=== PATIENT | male | born 1995 | race Caucasian/White ===

== ENCOUNTER 2016-06-21 16:00 | Emergency (ER) | payer SELFPAY ==
[2016-06-21 16:55] VITALS: BP 124/67
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
[2016-06-21 17:35] LABS: ABSOLUTE BASOPHILS # (AUTO) 0.1 10^3/uL (0.0-0.2); ABSOLUTE EOSINOPHILS # (AUTO) 0.3 10^3/uL (0.0-0.6); ABSOLUTE LYMPHOCYTES (AUTO) 4.6 10^3/uL (0.5-4.7); ABSOLUTE MONOCYTES (AUTO) 1.3 10^3/uL (0.1-1.4); ABSOLUTE NEUT (AUTO) 6.4 10^3/uL (1.7-8.2); BASOPHILS % (AUTO) 0.7 % (0-2); EOSINOPHILS % (AUTO) 2.4 % (0-6); HEMATOCRIT 44.3 % (37.9-51.0); HEMOGLOBIN 14.7 g/dL (13.5-17.0); HGB HCT DIFFERENCE -0.2; LYMPHOCYTES % (AUTO) 36.5 % (13-45); MEAN CORPUSCULAR HEMOGLOBIN 28.1 pg (27.0-33.4); MEAN CORPUSCULAR HGB CONC 33.2 g/dL (32.0-36.0); MEAN CORPUSCULAR VOLUME 85 fl (80-97); MONOCYTES % (AUTO) 10.1 % (3-13); RED BLOOD COUNT 5.24 10^6/uL (4.35-5.55); RED CELL DISTRIBUTION WIDTH 14.4 % (11.5-14.0); SEGMENTED NEUTROPHILS % (AUTO) 50.3 % (42-78); WHITE BLOOD COUNT 12.7 10^3/uL (4.0-10.5)
[2016-06-21 17:54] LABS: ALANINE AMINOTRANSFERASE 48 U/L (21-72); ALBUMIN 4.2 g/dL (3.5-5.0); ALKALINE PHOSPHATASE 85 U/L (38-126); ANION GAP 10 (5-19); ASPARTATE AMINO TRANSFERASE 32 U/L (17-59); BILIRUBIN,TOTAL 0.6 mg/dL (0.2-1.3); BLOOD UREA NITROGEN 8 mg/dL (7-20); CALCIUM 9.8 mg/dL (8.4-10.2); CARBON DIOXIDE 26 mmol/L (22-30); CHLORIDE 105 mmol/L (98-107); GLUCOSE 84 mg/dL (75-110); LIPASE 59.6 U/L (23-300); POTASSIUM 4.3 mmol/L (3.6-5.0); TOTAL PROTEIN 6.8 g/dL (6.3-8.2)
--- NOTE | 2016-06-21 20:34 | EKG REPORT ---
SEVERITY:- NORMAL ECG - SINUS RHYTHM : Confirmed by: Shayan Carr MD 21-Jun-2016 20:34:08
== END 2016-06-21 17:55 | disposition left against medical advice (07) ==
LOC: ER 16:00
DX: R06.02 Shortness of breath (principal); R07.9 Chest pain, unspecified; R05 Cough
CPT/HCPCS: 36415; 71020; 80053; 83690; 85025; 93005; 93010; 99281

== ENCOUNTER 2016-07-16 01:37 | Emergency (ER) | payer SELFPAY ==
[2016-07-16 01:49] VITALS: BP 136/75
[2016-07-16] MEDS ORDERED: KETOROLAC TROMETHAMINE 60 MG/2 ML SDV IM ONE (02:45)
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
== END 2016-07-16 04:35 | disposition left against medical advice (07) ==
LOC: ER 01:37
DX: M54.2 Cervicalgia (principal); M54.5 Low back pain; R42 Dizziness and giddiness; R51 Headache; F17.200 Nicotine dependence, unspecified, uncomplicated; J45.909 Unspecified asthma, uncomplicated; Z53.20 Procedure and treatment not carried out because of patient's decision for unspecified reasons; Z90.81 Acquired absence of spleen
CPT/HCPCS: 99281; 96372; J1885

== ENCOUNTER 2016-07-25 11:51 | Emergency (ER) | payer SELFPAY ==
[2016-07-25 11:56] VITALS: BP 126/73
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
[2016-07-25] MEDS ORDERED: IBUPROFEN 600 MG TABLET PO ONE (12:28)
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
== END 2016-07-25 12:45 | disposition home or self-care (01) ==
LOC: ER 11:51
DX: S63.630A Sprain of interphalangeal joint of right index finger, initial encounter (principal); F90.9 Attention-deficit hyperactivity disorder, unspecified type; F31.9 Bipolar disorder, unspecified; F17.210 Nicotine dependence, cigarettes, uncomplicated; X58.XXXA Exposure to other specified factors, initial encounter
CPT/HCPCS: 99283

== ENCOUNTER 2016-07-28 06:25 | Emergency (ER) | payer SELFPAY ==
[2016-07-28] MEDS ORDERED: PROCHLORPERAZINE EDISYLATE INJ 10 MG/2 ML VIAL IV ONE (07:18)
[2016-07-28] MEDS ORDERED: DIPHENHYDRAMINE HCL 50 MG/ML VIAL IV ONE (07:18)
[2016-07-28] MEDS ORDERED: NORMAL SALINE 1000 ML 1,000 ML IV ONE ×2 (07:18→09:19)
[2016-07-28] MEDS ORDERED: PREDNISONE 20 MG TABLET PO ONE (07:21)
[2016-07-28] MEDS ORDERED: IPRATROPIUM/ALBUTEROL 0.5-2.5 MG/3 ML AMPUL NEB ONE (07:21)
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
[2016-07-28 08:41] LABS: ABSOLUTE EOSINOPHILS # (AUTO) 0.4 10^3/uL (0.0-0.6); ABSOLUTE MONOCYTES (AUTO) 1.5 10^3/uL (0.1-1.4); ABSOLUTE NEUT (AUTO) 7.6 10^3/uL (1.7-8.2); BASOPHILS % (AUTO) 0.3 % (0-2); EOSINOPHILS % (AUTO) 2.7 % (0-6); HEMATOCRIT 42.6 % (37.9-51.0); HEMOGLOBIN 14.6 g/dL (13.5-17.0); HGB HCT DIFFERENCE 1.2; MEAN CORPUSCULAR HEMOGLOBIN 29.2 pg (27.0-33.4); MEAN CORPUSCULAR HGB CONC 34.3 g/dL (32.0-36.0); MEAN CORPUSCULAR VOLUME 85 fl (80-97); MONOCYTES % (AUTO) 9.3 % (3-13); RED BLOOD COUNT 5.01 10^6/uL (4.35-5.55); RED CELL DISTRIBUTION WIDTH 14.3 % (11.5-14.0); SEGMENTED NEUTROPHILS % (AUTO) 45.7 % (42-78); WHITE BLOOD COUNT 16.6 10^3/uL (4.0-10.5)
[2016-07-28 09:01] LABS: APPEARANCE,URINE SLIGHTLY-CLOUDY; BILIRUBIN,URINE NEGATIVE (NEGATIVE); CALCIUM OXALATE CRYSTALS,URINE RARE /HPF; GLUCOSE, URINE NEGATIVE (NEGATIVE); KETONES,URINE TRACE mg/dL (NEGATIVE); LEUKOCYTE ESTERASE,URINE NEGATIVE (NEGATIVE); NITRITE,URINE NEGATIVE (NEGATIVE); PROTEIN,URINE 30 mg/dL (NEGATIVE); URINE SPECIFIC GRAVITY 1.036; UROBILINOGEN,URINE NEGATIVE mg/dL (<2.0)
[2016-07-28 09:06] LABS: ALANINE AMINOTRANSFERASE 60 U/L (21-72); ALBUMIN 4.1 g/dL (3.5-5.0); ALKALINE PHOSPHATASE 81 U/L (38-126); ANION GAP 11 (5-19); ASPARTATE AMINO TRANSFERASE 36 U/L (17-59); BILIRUBIN,TOTAL 0.3 mg/dL (0.2-1.3); BLOOD UREA NITROGEN 10 mg/dL (7-20); CALCIUM 10.1 mg/dL (8.4-10.2); CARBON DIOXIDE 24 mmol/L (22-30); CHLORIDE 106 mmol/L (98-107); CREATININE RESULT 0.72 mg/dL (0.52-1.25); GLUCOSE 90 mg/dL (75-110); LIPASE 76.5 U/L (23-300); POTASSIUM 4.4 mmol/L (3.6-5.0)
[2016-07-28] MEDS ORDERED: ALBUTEROL SULFATE HFA (90 MCG/PUFF) 8 GM MDI (1 MDI/ER DISP) IH ONE (11:49)
[2016-07-28 12:24] VITALS: BP 133/66
== END 2016-07-28 12:00 | disposition home or self-care (01) ==
LOC: ER 06:25
DX: R51 Headache (principal); J06.9 Acute upper respiratory infection, unspecified; E86.0 Dehydration; R19.7 Diarrhea, unspecified; R11.2 Nausea with vomiting, unspecified; R04.0 Epistaxis; R10.817 Generalized abdominal tenderness; R39.89 Other symptoms and signs involving the genitourinary system; J45.909 Unspecified asthma, uncomplicated; M79.1 Myalgia; F17.200 Nicotine dependence, unspecified, uncomplicated; Z90.81 Acquired absence of spleen
CPT/HCPCS: 94640; 99284; 96361; 96374; 96375; 36415; 83690; 85025; 80053; 81001; 87804; J1200; J7512; J0780; J7030; J3490; J7620

== ENCOUNTER 2016-08-08 19:19 | Emergency (ER) | payer SELFPAY ==
[2016-08-08 19:40] VITALS: BP 132/72
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
[2016-08-08] MEDS ORDERED: ASPIRIN 81 MG TABLET, CHEWABLE PO ONE (19:43)
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
[2016-08-08 22:17] LABS: ANION GAP 13 (5-19); BLOOD UREA NITROGEN 9 mg/dL (7-20); CALCIUM 9.8 mg/dL (8.4-10.2); CARBON DIOXIDE 23 mmol/L (22-30); CHLORIDE 105 mmol/L (98-107); CREATININE RESULT 0.61 mg/dL (0.52-1.25); GLUCOSE 98 mg/dL (75-110)
--- NOTE | 2016-08-09 20:18 | EKG REPORT ---
SEVERITY:- NORMAL ECG - SINUS RHYTHM : Confirmed by: Jose Saeed 09-Aug-2016 20:17:34
== END 2016-08-08 22:08 | disposition left against medical advice (07) ==
LOC: ER 19:19
DX: R20.2 Paresthesia of skin (principal); R07.9 Chest pain, unspecified; F17.200 Nicotine dependence, unspecified, uncomplicated
CPT/HCPCS: 36415; 71020; 80048; 93005; 93010; 99281

== ENCOUNTER 2016-08-30 17:42 | Emergency (ER) | payer SELFPAY ==
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
[2016-08-30 18:36] LABS: ABSOLUTE BASOPHILS # (AUTO) 0.1 10^3/uL (0.0-0.2); ABSOLUTE EOSINOPHILS # (AUTO) 0.4 10^3/uL (0.0-0.6); ABSOLUTE LYMPHOCYTES (AUTO) 4.8 10^3/uL (0.5-4.7); ABSOLUTE MONOCYTES (AUTO) 0.8 10^3/uL (0.1-1.4); ABSOLUTE NEUT (AUTO) 7.4 10^3/uL (1.7-8.2); BASOPHILS % (AUTO) 0.7 % (0-2); EOSINOPHILS % (AUTO) 3.1 % (0-6); HEMATOCRIT 47.2 % (37.9-51.0); HEMOGLOBIN 16.1 g/dL (13.5-17.0); HGB HCT DIFFERENCE 1.1; LYMPHOCYTES % (AUTO) 35.3 % (13-45); MEAN CORPUSCULAR HEMOGLOBIN 28.9 pg (27.0-33.4); MEAN CORPUSCULAR HGB CONC 34.1 g/dL (32.0-36.0); MEAN CORPUSCULAR VOLUME 85 fl (80-97); MONOCYTES % (AUTO) 6.1 % (3-13); RED BLOOD COUNT 5.56 10^6/uL (4.35-5.55); SEGMENTED NEUTROPHILS % (AUTO) 54.8 % (42-78); WHITE BLOOD COUNT 13.5 10^3/uL (4.0-10.5)
[2016-08-30 18:55] LABS: ALANINE AMINOTRANSFERASE 49 U/L (21-72); ALBUMIN 4.4 g/dL (3.5-5.0); ALCOHOL < 10 mg/dL (NONE DETECTED); ALKALINE PHOSPHATASE 91 U/L (38-126); ANION GAP 13 (5-19); ASPARTATE AMINO TRANSFERASE 30 U/L (17-59); BILIRUBIN,DIRECT 0.1 mg/dL (0.0-0.4); BILIRUBIN,TOTAL 0.3 mg/dL (0.2-1.3); BLOOD UREA NITROGEN 11 mg/dL (7-20); CALCIUM 10.3 mg/dL (8.4-10.2); CARBON DIOXIDE 24 mmol/L (22-30); CHLORIDE 107 mmol/L (98-107); CREATININE RESULT 0.63 mg/dL (0.52-1.25); GLUCOSE 110 mg/dL (75-110); POTASSIUM 4.6 mmol/L (3.6-5.0); SODIUM 144.4 mmol/L (137-145); TOTAL PROTEIN 7.4 g/dL (6.3-8.2)
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
[2016-08-30 19:24] LABS: APPEARANCE,URINE SLIGHTLY-CLOUDY; BILIRUBIN,URINE NEGATIVE (NEGATIVE); GLUCOSE, URINE NEGATIVE (NEGATIVE); KETONES,URINE NEGATIVE (NEGATIVE); LEUKOCYTE ESTERASE,URINE NEGATIVE (NEGATIVE); NITRITE,URINE NEGATIVE (NEGATIVE); PROTEIN,URINE 30 mg/dL (NEGATIVE); URINE SPECIFIC GRAVITY 1.031; UROBILINOGEN,URINE NEGATIVE mg/dL (<2.0)
[2016-08-30 19:38] LABS: URINE BARBITURATES SCREEN NEGATIVE; URINE METHADONE SCREEN NEGATIVE; URINE OPIATES LOW NEGATIVE; URINE PHENCYCLIDINE SCREEN NEGATIVE
--- NOTE | 2016-08-30 21:12 | EKG REPORT ---
SEVERITY:- NORMAL ECG - SINUS RHYTHM : Confirmed by: Ayaka Pierre MD 30-Aug-2016 21:11:55
[2016-08-31] MEDS ORDERED: ALBUTEROL SULFATE HFA (90 MCG/PUFF) 200 PUFF/8.5 GM MDI IH ONE (04:51)
--- NOTE | 2016-08-31 09:55 | ER Document Report ---
Doctor's Note Notes: 08/31/16 09:52 Medical rounds: Chart reviewed and patient interviewed briefly. Patient denies somatic complaints. Vital signs are normal. Laboratory values are remarkable for presence of benzodiazepine residues on drug screen. He is alert, oriented, and coherent. He is medically stable, pending psych evaluation.
--- NOTE | 2016-08-31 10:54 | PSYCHOLOGICAL NOTE ---
Psych Note - Psych Note Psych Note: Patient is a 20-year-old male who presented overnight with complaints of increased depression and thoughts of suicide. Patient was held voluntarily as he was not felt to meet criteria per the [place] general statute 122C as he denied intent, plan, and means behind his suicidal ideations. Patient this morning states he has been depressed on and off for a while, and has a history of opt services via [facility]. Patient can not or will not identify age/time frame, but does state it was not helpful. Patient states his depressive episodes waxes and wanes, and yesterday he was arguing with his grandparents. Patient adamant that he would not disclose the nature of this argument, and states it is a private family matter. Patient states he is being forced to live in [place] and has no one out there as a support. Patient states he has to beg and borrow rides to get to work at [employer] at the [employer]. Patient states some days he care and some days he does not. Patient states some times he wants to by suicide and sometimes he just wants to feel better. Discussed with patient various options, to include following up at [facility]. Patient appeared irritated and stated he wasted all his time by coming here and spending the night. Patient was prompted to clarify the type of help he was seeking, which he states he did not know. Advised patient that [facility] was within walking distance to his job, which may be the most feasible. Patient states he is financially struggling which adds to his stress and has no other place to live. Patient denied SA; however, when prompted to identify the source of his positive benzo toxicology, he states he was given one by a friend when upset a could days ago. Patient's next of kin, Cary Winters states they had a major disagreement yesterday and he was "out of line" and had to call the law. She states when he gets angry he loses control and he was communicating threats and refusing to leave. She states he threatened to come back and reek havoc on them. She denies specific threats. Grandmother states historically he has lived with them, but moved out of their home at age 15, dropped out of school and stopped medications. She states she has told him that if moved back in with his other grandmother she would ensure he has a ride to and from work, as well as help him apply for Medicaid. She states he was staying with a friend and she prompted him to move in with the other grandmother so she could drive him back and forth to his appointments and work. Patient is alert and oriented. Mood is irritable with flat affect. Patient endorses suicidal ideations but denies plan, intent, or means. Patient denies homicidal ideations, intent, plan, means. Patient denies A/VH; delusions not noted. Thought processes were guarded. Conversational speech was blunted. Intellectual abilities were estimated within low average range. Attention and focus were fair. Insight, judgment, impulse control were poor. Unspecified bipolar and related disorder, per history R/O substance abuse Patient is psychiatrically cleared and recommended for discharge to follow up as a walk-in at [facility] for comprehensive clinical assessment and possible outpatient services. Patient does not meet criteria for IVC per [place] 122C as he denies SI with intent, and is not experiencing and/or following through with command hallucinations. Collateral information denies they are concerned for his safety and states they are agreeable to plan of care for him to follow-up and will also support patient in doing so. I consulted with Dr. Aguilar in regards to the care and management of this patient. BRYANNA Allison. is in agreement with disposition and recommendations.
[2016-08-31] MEDS ORDERED: ALBUTEROL SULFATE HFA (90 MCG/PUFF) 200 PUFF/8.5 GM MDI IH PRN (10:59)
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
[2016-08-31 11:56] VITALS: BP 135/76
== END 2016-08-31 12:05 | disposition home or self-care (01) ==
LOC: ER 17:42
DX: R45.851 Suicidal ideations (principal); F19.10 Other psychoactive substance abuse, uncomplicated; R45.1 Restlessness and agitation
CPT/HCPCS: 93005; 99285; 36415; 80307 ×4; 85025; 80053; 81001; 93010; J3490

== ENCOUNTER 2016-09-30 07:30 | Emergency (ER) | payer SELFPAY ==
[2016-09-30] MEDS ORDERED: GUAIFENESIN 600 MG TABLET.SA PO ONE (08:41)
[2016-09-30] MEDS ORDERED: IBUPROFEN 800 MG TABLET PO ONE (08:41)
[2016-09-30] MEDS ORDERED: PSEUDOEPHEDRINE HCL 30 MG TABLET PO ONE (08:41)
[2016-09-30] MEDS ORDERED: ALBUTEROL SULFATE 0.083% NEB 2.5 MG/3 ML AMPUL NEB ONE (08:41)
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
[2016-09-30 09:09] VITALS: BP 136/72
[2016-09-30] MEDS ORDERED: DEXTROSE 50%-WATER 25 GM/50 ML DISP.SYRIN IV PRN ×2 (18:04)
[2016-09-30] MEDS ORDERED: ONDANSETRON HCL INJ/PF 4 MG/2 ML SDV IV PRN (18:04)
[2016-09-30] MEDS ORDERED: GLUCAGON,HUMAN RECOMB 1 MG INJ IM PRN (18:04)
[2016-09-30] MEDS ORDERED: ALBUTEROL SULFATE 0.083% NEB 2.5 MG/3 ML AMPUL NEB PRN (18:04)
[2016-09-30] MEDS ORDERED: DEXTROSE 40% GEL 15 GM TUBE PO PRN ×2 (18:04)
[2016-09-30] MEDS ORDERED: NORMAL SALINE 1000 ML 1,000 ML IV PRN (18:04)
[2016-09-30] MEDS ORDERED: ACETAMINOPHEN 325 MG TABLET PO PRN (18:04)
[2016-09-30] MEDS ORDERED: FAMOTIDINE 20 MG TABLET PO SCH (22:00)
[2016-10-01] MEDS ORDERED: ENOXAPARIN SODIUM INJ 40 MG/0.4 ML DISP.SYRIN SUBCUT SCH (08:00)
[2016-10-01] MEDS ORDERED: DOCUSATE SODIUM 100 MG CAPSULE PO SCH (10:00)
== END 2016-09-30 09:25 | disposition home or self-care (01) ==
LOC: ER 07:30
DX: J06.9 Acute upper respiratory infection, unspecified (principal); H92.03 Otalgia, bilateral; R05 Cough; J45.909 Unspecified asthma, uncomplicated; F17.200 Nicotine dependence, unspecified, uncomplicated; Z90.81 Acquired absence of spleen
CPT/HCPCS: 94640; 99282

== ENCOUNTER 2016-11-07 08:08 | Emergency (ER) | payer SELFPAY ==
[2016-11-07] MEDS ORDERED: IPRATROPIUM/ALBUTEROL 0.5-2.5 MG/3 ML AMPUL NEB ONE ×2 (08:26→10:13)
[2016-11-07] MEDS ORDERED: PREDNISONE 20 MG TABLET PO ONE (08:32)
[2016-11-07] MEDS ORDERED: ALBUTEROL SULFATE 0.083% NEB 2.5 MG/3 ML AMPUL NEB ONE (08:32)
[2016-11-07] MEDS ORDERED: ALBUTEROL SULFATE HFA (90 MCG/PUFF) 8 GM MDI (1 MDI/ER DISP) IH ONE ×2 (10:36→11:57)
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
[2016-11-07 12:17] VITALS: BP 111/89
== END 2016-11-07 12:15 | disposition home or self-care (01) ==
LOC: ER 08:08
DX: J45.901 Unspecified asthma with (acute) exacerbation (principal); R06.02 Shortness of breath; Z87.891 Personal history of nicotine dependence
CPT/HCPCS: 94640 ×2; 99284; J7512; J3490; J7620

== ENCOUNTER 2016-11-18 21:57 | Emergency (ER) | payer SELFPAY ==
[2016-11-18 23:12] LABS: APPEARANCE,URINE SLIGHTLY-CLOUDY; BILIRUBIN,URINE SMALL (NEGATIVE); GLUCOSE, URINE NEGATIVE (NEGATIVE); KETONES,URINE TRACE mg/dL (NEGATIVE); LEUKOCYTE ESTERASE,URINE NEGATIVE (NEGATIVE); NITRITE,URINE NEGATIVE (NEGATIVE); PROTEIN,URINE 100 mg/dL (NEGATIVE); URINE SPECIFIC GRAVITY 1.044; UROBILINOGEN,URINE NEGATIVE mg/dL (<2.0)
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
[2016-11-18] MEDS ORDERED: NORMAL SALINE 1000 ML 1,000 ML IV ONE (23:45)
[2016-11-19 00:44] LABS: ALANINE AMINOTRANSFERASE 46 U/L (21-72); ALBUMIN 4.3 g/dL (3.5-5.0); ALKALINE PHOSPHATASE 84 U/L (38-126); ANION GAP 14 (5-19); ASPARTATE AMINO TRANSFERASE 28 U/L (17-59); BILIRUBIN,DIRECT 0.3 mg/dL (0.0-0.4); BILIRUBIN,TOTAL 0.5 mg/dL (0.2-1.3); BLOOD UREA NITROGEN 16 mg/dL (7-20); CALCIUM 10.2 mg/dL (8.4-10.2); CARBON DIOXIDE 24 mmol/L (22-30); CHLORIDE 105 mmol/L (98-107); CREATININE RESULT 0.73 mg/dL (0.52-1.25); GLUCOSE 102 mg/dL (75-110); POTASSIUM 4.3 mmol/L (3.6-5.0); SODIUM 142.7 mmol/L (137-145); TOTAL PROTEIN 7.8 g/dL (6.3-8.2)
[2016-11-19 02:15] VITALS: BP 133/68
== END 2016-11-19 02:15 | disposition home or self-care (01) ==
LOC: ER 21:57
DX: R30.0 Dysuria (principal); E86.0 Dehydration; J45.909 Unspecified asthma, uncomplicated; Z90.81 Acquired absence of spleen
CPT/HCPCS: 99283; 96360; 36415; 80053; 81001; J7030

== ENCOUNTER 2016-11-26 23:09 | Emergency (ER) | payer SELFPAY ==
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
[2016-11-27] MEDS ORDERED: BESIFLOXACIN HCL 0.6% OPH SUSP 5 ML BOTTLE OD ONE (01:18)
[2016-11-27 02:34] VITALS: BP 117/57
== END 2016-11-27 01:45 | disposition home or self-care (01) ==
LOC: ER 23:09
DX: H57.11 Ocular pain, right eye (principal); F17.200 Nicotine dependence, unspecified, uncomplicated; Z71.6 Tobacco abuse counseling; J45.909 Unspecified asthma, uncomplicated
CPT/HCPCS: 99283

== ENCOUNTER 2016-12-04 21:43 | Emergency (ER) | payer SELFPAY ==
[2016-12-04 23:03] LABS: ABSOLUTE BASOPHILS # (AUTO) 0.1 10^3/uL (0.0-0.2); ABSOLUTE EOSINOPHILS # (AUTO) 0.3 10^3/uL (0.0-0.6); ABSOLUTE LYMPHOCYTES (AUTO) 5.8 10^3/uL (0.5-4.7); ABSOLUTE MONOCYTES (AUTO) 1.2 10^3/uL (0.1-1.4); ABSOLUTE NEUT (AUTO) 8.9 10^3/uL (1.7-8.2); BASOPHILS % (AUTO) 0.5 % (0-2); EOSINOPHILS % (AUTO) 1.7 % (0-6); HEMATOCRIT 45.5 % (37.9-51.0); HEMOGLOBIN 14.9 g/dL (13.5-17.0); HGB HCT DIFFERENCE -0.8; LYMPHOCYTES % (AUTO) 35.9 % (13-45); MEAN CORPUSCULAR HGB CONC 32.6 g/dL (32.0-36.0); MEAN CORPUSCULAR VOLUME 86 fl (80-97); MONOCYTES % (AUTO) 7.2 % (3-13); RED CELL DISTRIBUTION WIDTH 14.5 % (11.5-14.0); SEGMENTED NEUTROPHILS % (AUTO) 54.7 % (42-78); WHITE BLOOD COUNT 16.2 10^3/uL (4.0-10.5)
[2016-12-04 23:14] LABS: ANION GAP 12 (5-19); BLOOD UREA NITROGEN 10 mg/dL (7-20); CALCIUM 9.6 mg/dL (8.4-10.2); CARBON DIOXIDE 24 mmol/L (22-30); CHLORIDE 106 mmol/L (98-107); GLUCOSE 114 mg/dL (75-110); POTASSIUM 4.3 mmol/L (3.6-5.0); SODIUM 141.9 mmol/L (137-145)
[2016-12-04] MEDS ORDERED: ONDANSETRON 4 MG TAB.RAPDIS PO ONE (23:16)
[2016-12-04] MEDS ORDERED: MAG HYDROX/AL HYDROX/SIMETH SUSP 30 ML UDCUP PO ONE (23:16)
[2016-12-04] MEDS ORDERED: METOCLOPRAMIDE HCL ORAL SOLN 10 MG/10 ML UDCUP PO ONE (23:16)
[2016-12-04] MEDS ORDERED: LIDOCAINE 2% VISCOUS SOLN 20 ML UDCUP PO ONE (23:16)
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
--- NOTE | 2016-12-05 00:05 | RADIOLOGY REPORT (SQ) ---
EXAM DESCRIPTION: CT HEAD WITHOUT COMPLETED DATE/TIME: 12/04/2016 11:44 pm REASON FOR STUDY: head trauma, vomiting COMPARISON: 07/10/2015 TECHNIQUE: Axial images acquired through the brain without intravenous contrast. Images reviewed wi th bone, brain and subdural windows. Images stored on PACS. All CT scanners at this facility use dose modulation, iterative reconstruction, and/or weight based d osing when appropriate to reduce radiation dose to as low as reasonably achievable (ALARA). [facility]: Dose Right [facility]: CareDose [facility]: Dose Right [facility]: Teradose 4D [facility]: Smart [place] RADIATION DOSE: Up-to-date CT equipment and radiation dose reduction techniques were employed. CTDIv ol: 64.6 mGy. DLP: 1163 mGy-cm. mGy. LIMITATIONS: None. FINDINGS: VENTRICLES: Normal size and contour. CEREBRUM: No masses. No hemorrhage. No midline shift. Normal lewis/white matter differentiation. N o evidence for acute infarction. CEREBELLUM: No masses. No hemorrhage. No alteration of density. No evidence for acute infarction. EXTRAAXIAL SPACES: No fluid collections. No masses. ORBITS AND GLOBE: No intra- or extraconal masses. Normal contour of globe without masses. CALVARIUM: No fracture. PARANASAL SINUSES: Mild chronic sinus changes in the maxillary and ethmoid sinuses. SOFT TISSUES: No mass or hematoma. OTHER: No other significant finding. IMPRESSION: No acute intracranial findings. TECHNICAL DOCUMENTATION: JOB ID: [id number] Quality ID # [id number]: Final reports with documentation of one or more dose reduction techniques (e.g., Au tomated exposure control, adjustment of the mA and/or kV according to patient size, use of iterative reconstruction technique) 2010 [employer]- All Rights Reserved
[2016-12-05] MEDS ORDERED: ONDANSETRON ODT 4 MG TAB (6 TAB/DSPK) PO PRN (00:16)
[2016-12-05 00:29] VITALS: BP 126/63
== END 2016-12-05 00:40 | disposition home or self-care (01) ==
LOC: ER 21:43
DX: S09.90XA Unspecified injury of head, initial encounter (principal); R10.10 Upper abdominal pain, unspecified; R11.2 Nausea with vomiting, unspecified; W22.09XA Striking against other stationary object, initial encounter; Y92.512 Supermarket, store or market as the place of occurrence of the external cause; Z90.81 Acquired absence of spleen
CPT/HCPCS: 99284; 36415; 85025; 80048; 70450; S0119; J3490

== ENCOUNTER 2017-01-18 16:29 | Emergency (ER) | payer SELFPAY ==
[2017-01-18 16:39] VITALS: BP 129/64
[2017-01-18] MEDS ORDERED: IPRATROPIUM/ALBUTEROL 0.5-2.5 MG/3 ML AMPUL NEB ONE (16:41)
[2017-01-18] MEDS ORDERED: ALBUTEROL SULFATE HFA (90 MCG/PUFF) 8 GM MDI (1 MDI/ER DISP) IH PRN (16:41)
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
== END 2017-01-18 17:12 | disposition home or self-care (01) ==
LOC: ER 16:29
DX: R06.2 Wheezing (principal); R06.02 Shortness of breath; Z87.891 Personal history of nicotine dependence
CPT/HCPCS: 99284; J3490; J7620

== ENCOUNTER 2017-02-02 23:02 | Emergency (ER) | payer SELFPAY ==
[2017-02-03 00:13] VITALS: BP 131/81
== END 2017-02-03 01:19 | disposition left against medical advice (07) ==
LOC: ER 23:02
DX: Z53.21 Procedure and treatment not carried out due to patient leaving prior to being seen by health care provider (principal)

== ENCOUNTER 2017-02-05 21:59 | Emergency (ER) | payer SELFPAY ==
[2017-02-05 23:35] LABS: ABSOLUTE BASOPHILS # (AUTO) 0.1 10^3/uL (0.0-0.2); ABSOLUTE EOSINOPHILS # (AUTO) 0.4 10^3/uL (0.0-0.6); ABSOLUTE LYMPHOCYTES (AUTO) 6.5 10^3/uL (0.5-4.7); ABSOLUTE MONOCYTES (AUTO) 1.3 10^3/uL (0.1-1.4); ABSOLUTE NEUT (AUTO) 8.3 10^3/uL (1.7-8.2); BASOPHILS % (AUTO) 0.5 % (0-2); EOSINOPHILS % (AUTO) 2.2 % (0-6); HEMATOCRIT 43.3 % (37.9-51.0); HEMOGLOBIN 14.9 g/dL (13.5-17.0); HGB HCT DIFFERENCE 1.4; LYMPHOCYTES % (AUTO) 39.5 % (13-45); MEAN CORPUSCULAR HEMOGLOBIN 29.3 pg (27.0-33.4); MEAN CORPUSCULAR HGB CONC 34.4 g/dL (32.0-36.0); MEAN CORPUSCULAR VOLUME 85 fl (80-97); MONOCYTES % (AUTO) 7.6 % (3-13); RED BLOOD COUNT 5.07 10^6/uL (4.35-5.55); RED CELL DISTRIBUTION WIDTH 13.9 % (11.5-14.0); SEGMENTED NEUTROPHILS % (AUTO) 50.2 % (42-78); WHITE BLOOD COUNT 16.5 10^3/uL (4.0-10.5)
[2017-02-05 23:44] LABS: ALANINE AMINOTRANSFERASE 58 U/L (21-72); ALBUMIN 4.7 g/dL (3.5-5.0); ALKALINE PHOSPHATASE 75 U/L (38-126); ASPARTATE AMINO TRANSFERASE 33 U/L (17-59); BILIRUBIN,DIRECT 0.4 mg/dL (0.0-0.4); BILIRUBIN,TOTAL 0.5 mg/dL (0.2-1.3); BLOOD UREA NITROGEN 11 mg/dL (7-20); CALCIUM 10.6 mg/dL (8.4-10.2); CARBON DIOXIDE 27 mmol/L (22-30); CREATININE RESULT 0.68 mg/dL (0.52-1.25); GLUCOSE 94 mg/dL (75-110); TOTAL PROTEIN 7.7 g/dL (6.3-8.2)
[2017-02-05 23:51] LABS: ANION GAP 11 (5-19); CHLORIDE 104 mmol/L (98-107); POTASSIUM 4.1 mmol/L (3.6-5.0); SODIUM 142.1 mmol/L (137-145)
[2017-02-06] MEDS ORDERED: PROMETHAZINE HCL 25 MG TABLET PO ONE (00:56)
[2017-02-06] MEDS ORDERED: OXYCODONE-ACETAMINOPHEN 5-325 MG TABLET PO ONE (00:56)
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
--- NOTE | 2017-02-06 01:55 | RADIOLOGY REPORT (SQ) ---
EXAM DESCRIPTION: RIBS LEFT W/PA CHEST COMPLETED DATE/TIME: 02/06/2017 1:24 am REASON FOR STUDY: fall, pain, coughed up blood COMPARISON: Left rib series 07/17/2014. TECHNIQUE: Frontal view of the chest and additional views of the left ribs acquired. NUMBER OF VIEWS: Three view. LIMITATIONS: None. FINDINGS: FRONTAL CXR: No pneumothorax. No pleural effusion. No atelectasis or infiltrates. RIBS: No displaced rib fractures. OTHER: Embolization coils are seen in the left upper quadrant. IMPRESSION: No pneumothorax. No displaced rib fractures. COMMENT: SITE OF TRAUMA/COMPLAINT MARKED/STAMP COMPLETED: YES. TECHNICAL DOCUMENTATION: JOB ID: [id number] [place]-64 2010 [employer]- All Rights Reserved
--- NOTE | 2017-02-06 03:28 | RADIOLOGY REPORT (SQ) ---
EXAM DESCRIPTION: U/S ABDOMEN COMPLETE W/O DOP COMPLETED DATE/TIME: 02/06/2017 3:02 am REASON FOR STUDY: fall, pain on left mid to upper abdomen COMPARISON: CT abdomen and pelvis 06/12/2014. TECHNIQUE: Dynamic and static grayscale images acquired of the abdomen and recorded on PACS. Additio nal selected color Doppler images recorded. LIMITATIONS: Patient's body habitus. Overlying bowel loops. FINDINGS: PANCREAS: Obscured by overlying bowel loops. LIVER: The liver measures 21.1 cm. There is increased echogenicity, most consistent with fatty infil tration. LIVER VASCULATURE: Not well visualized. GALLBLADDER: Gallstone(s). No pericholecystic fluid. No wall thickening. ULTRASOUND-DETECTED QUARLES'S SIGN: Negative. INTRAHEPATIC DUCTS AND COMMON DUCT: CBD and intrahepatic ducts normal caliber. INFERIOR VENA CAVA: No t well visualized. AORTA: No aneurysm in the visualized segments. RIGHT KIDNEY: Measures 13.1 cm. Normal echogenicity. No hydronephrosis. LEFT KIDNEY: Measures 13.1 cm. Normal echogenicity. No hydronephrosis. SPLEEN: Surgically absent. Hypoechoic area in the left upper quadrant measuring 2.9 x 2.8 x 2.6 cm, may represent an accessory splenule. PERITONEAL AND PLEURAL SPACES: No ascites or effusions. IMPRESSION: Hepatomegaly and fatty infiltration of the liver. Cholelithiasis. No biliary ductal dilation. Status post splenectomy. TECHNICAL DOCUMENTATION: JOB ID: [id number] [place]-[id number] 2010 [employer]- All Rights Reserved
[2017-02-06] MEDS ORDERED: HYDROCODONE/ACETAMINOPHEN 5-325 MG 6 TAB/DSPK PO PRN (03:53)
[2017-02-06 04:11] VITALS: BP 136/66
== END 2017-02-06 04:11 | disposition home or self-care (01) ==
LOC: ER 21:59
DX: R10.9 Unspecified abdominal pain (principal); R07.81 Pleurodynia; W18.2XXA Fall in (into) shower or empty bathtub, initial encounter; J45.909 Unspecified asthma, uncomplicated; R04.2 Hemoptysis; K80.20 Calculus of gallbladder without cholecystitis without obstruction; K76.0 Fatty (change of) liver, not elsewhere classified; Z90.81 Acquired absence of spleen
CPT/HCPCS: 36415; 76700; 80053; 85025; 99284

== ENCOUNTER 2017-02-07 02:19 | Emergency (ER) | payer SELFPAY ==
[2017-02-07 02:25] VITALS: BP 149/88
[2017-02-07] MEDS ORDERED: CYCLOBENZAPRINE HCL 10 MG TABLET PO ONE (02:54)
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
== END 2017-02-07 03:05 | disposition home or self-care (01) ==
LOC: ER 02:19
DX: R10.9 Unspecified abdominal pain (principal); F17.200 Nicotine dependence, unspecified, uncomplicated
CPT/HCPCS: 99282

== ENCOUNTER 2017-02-09 23:58 | Emergency (ER) | payer OTHER ==
[2017-02-10] MEDS ORDERED: NORMAL SALINE 1000 ML 1,000 ML IV PRN (00:53)
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
[2017-02-10] MEDS ORDERED: MORPHINE SULFATE 10 MG/ML INJ IV ONE ×2 (00:54→03:41)
[2017-02-10] MEDS ORDERED: ONDANSETRON HCL INJ/PF 4 MG/2 ML SDV IV ONE (00:54)
[2017-02-10 01:09] LABS: ABSOLUTE BASOPHILS # (AUTO) 0.1 10^3/uL (0.0-0.2); ABSOLUTE EOSINOPHILS # (AUTO) 0.4 10^3/uL (0.0-0.6); ABSOLUTE LYMPHOCYTES (AUTO) 6.3 10^3/uL (0.5-4.7); ABSOLUTE MONOCYTES (AUTO) 1.2 10^3/uL (0.1-1.4); ABSOLUTE NEUT (AUTO) 9.6 10^3/uL (1.7-8.2); BASOPHILS % (AUTO) 0.5 % (0-2); EOSINOPHILS % (AUTO) 2.2 % (0-6); HEMOGLOBIN 15.3 g/dL (13.5-17.0); HGB HCT DIFFERENCE 0.9; LYMPHOCYTES % (AUTO) 35.8 % (13-45); MEAN CORPUSCULAR HEMOGLOBIN 29.1 pg (27.0-33.4); MEAN CORPUSCULAR VOLUME 86 fl (80-97); MONOCYTES % (AUTO) 7.1 % (3-13); RED BLOOD COUNT 5.26 10^6/uL (4.35-5.55); SEGMENTED NEUTROPHILS % (AUTO) 54.4 % (42-78); WHITE BLOOD COUNT 17.6 10^3/uL (4.0-10.5)
[2017-02-10 01:13] LABS: APPEARANCE,URINE SLIGHTLY-CLOUDY; BILIRUBIN,URINE NEGATIVE (NEGATIVE); CALCIUM OXALATE CRYSTALS,URINE MODERATE /HPF; GLUCOSE, URINE NEGATIVE (NEGATIVE); KETONES,URINE NEGATIVE (NEGATIVE); LEUKOCYTE ESTERASE,URINE NEGATIVE (NEGATIVE); NITRITE,URINE NEGATIVE (NEGATIVE); PROTEIN,URINE NEGATIVE (NEGATIVE); URINE SPECIFIC GRAVITY 1.029; UROBILINOGEN,URINE NEGATIVE mg/dL (<2.0)
[2017-02-10 01:24] LABS: ALANINE AMINOTRANSFERASE 54 U/L (21-72); ALBUMIN 4.4 g/dL (3.5-5.0); ALKALINE PHOSPHATASE 77 U/L (38-126); ANION GAP 12 (5-19); ASPARTATE AMINO TRANSFERASE 68 U/L (17-59); BILIRUBIN,DIRECT 0.4 mg/dL (0.0-0.4); BILIRUBIN,TOTAL 0.4 mg/dL (0.2-1.3); BLOOD UREA NITROGEN 11 mg/dL (7-20); CALCIUM 9.9 mg/dL (8.4-10.2); CARBON DIOXIDE 25 mmol/L (22-30); CHLORIDE 105 mmol/L (98-107); CREATININE RESULT 0.66 mg/dL (0.52-1.25); GLUCOSE 98 mg/dL (75-110); LIPASE 63.4 U/L (23-300); SODIUM 142.3 mmol/L (137-145); TOTAL PROTEIN 7.6 g/dL (6.3-8.2)
--- NOTE | 2017-02-10 02:55 | RADIOLOGY REPORT (SQ) ---
EXAM DESCRIPTION: U/S ABDOMEN LIMITED W/O DOP COMPLETED DATE/TIME: 02/10/2017 2:21 am REASON FOR STUDY: Upper abdominal pain, assess gallbladder COMPARISON: None. TECHNIQUE: Dynamic and static grayscale images acquired of the abdomen and recorded on PACS. Additio nal selected color Doppler and spectral images recorded. LIMITATIONS: Body habitus. FINDINGS: PANCREAS: Partially obscured. LIVER: No masses. Moderate hepatic steatosis. LIVER VASCULATURE: Normal directional flow of the main portal vein and hepatic veins. GALLBLADDER: Gallstone(s). No pericholecystic fluid. No wall thickening. ULTRASOUND-DETECTED QUARLES'S SIGN: Indeterminate. INTRAHEPATIC DUCTS AND COMMON DUCT: 0.6 cm diameter CBD and intrahepatic ducts normal caliber. No oscar ling defects. INFERIOR VENA CAVA: Normal flow. AORTA: No aneurysm. RIGHT KIDNEY: Normal size. Normal echogenicity. No solid or suspicious masses. No hydronephrosis. No calcifications. PERITONEAL AND RIGHT PLEURAL SPACE: No ascites or effusions. OTHER: No other significant findings. IMPRESSION: No acute findings. Cholelithiasis. Hepatic steatosis. Limited visualization of the pa ncreas. TECHNICAL DOCUMENTATION: JOB ID: [id number] [employer]- All Rights Reserved
[2017-02-10 04:05] VITALS: BP 118/78
== END 2017-02-10 04:00 | disposition home or self-care (01) ==
LOC: ER 23:58
DX: K80.20 Calculus of gallbladder without cholecystitis without obstruction (principal); R10.9 Unspecified abdominal pain; R11.0 Nausea
CPT/HCPCS: 96376; 99284; 96361; 96374; 96375; 36415; 83690; 85025; 80053; 81001; 76705; J2270; J2405; J7030

== ENCOUNTER 2017-02-16 14:02 | Emergency (ER) | payer OTHER ==
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
[2017-02-16 16:02] LABS: ABSOLUTE BASOPHILS # (AUTO) 0.1 10^3/uL (0.0-0.2); ABSOLUTE EOSINOPHILS # (AUTO) 0.2 10^3/uL (0.0-0.6); ABSOLUTE LYMPHOCYTES (AUTO) 4.7 10^3/uL (0.5-4.7); ABSOLUTE MONOCYTES (AUTO) 1.1 10^3/uL (0.1-1.4); ABSOLUTE NEUT (AUTO) 8.3 10^3/uL (1.7-8.2); BASOPHILS % (AUTO) 0.6 % (0-2); EOSINOPHILS % (AUTO) 1.6 % (0-6); HEMATOCRIT 43.4 % (37.9-51.0); HEMOGLOBIN 15.3 g/dL (13.5-17.0); HGB HCT DIFFERENCE 2.5; LYMPHOCYTES % (AUTO) 32.7 % (13-45); MEAN CORPUSCULAR HEMOGLOBIN 29.6 pg (27.0-33.4); MEAN CORPUSCULAR HGB CONC 35.2 g/dL (32.0-36.0); MEAN CORPUSCULAR VOLUME 84 fl (80-97); MONOCYTES % (AUTO) 7.6 % (3-13); RED BLOOD COUNT 5.17 10^6/uL (4.35-5.55); RED CELL DISTRIBUTION WIDTH 14.2 % (11.5-14.0); SEGMENTED NEUTROPHILS % (AUTO) 57.5 % (42-78); WHITE BLOOD COUNT 14.4 10^3/uL (4.0-10.5)
[2017-02-16 16:08] LABS: APPEARANCE,URINE CLEAR; BILIRUBIN,URINE NEGATIVE (NEGATIVE); GLUCOSE, URINE >=500 mg/dL (NEGATIVE); KETONES,URINE TRACE mg/dL (NEGATIVE); LEUKOCYTE ESTERASE,URINE NEGATIVE (NEGATIVE); NITRITE,URINE NEGATIVE (NEGATIVE); PROTEIN,URINE 30 mg/dL (NEGATIVE); URINE SPECIFIC GRAVITY 1.032
[2017-02-16] MEDS ORDERED: NORMAL SALINE 1000 ML 2,000 ML IV ONE (16:15)
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
[2017-02-16] MEDS ORDERED: MAG HYDROX/AL HYDROX/SIMETH SUSP 30 ML UDCUP PO ONE (16:25)
[2017-02-16] MEDS ORDERED: LIDOCAINE 2% VISCOUS SOLN 20 ML UDCUP PO ONE (16:25)
[2017-02-16 16:28] LABS: ALANINE AMINOTRANSFERASE 63 U/L (21-72); ALBUMIN 4.6 g/dL (3.5-5.0); ALKALINE PHOSPHATASE 75 U/L (38-126); ANION GAP 10 (5-19); ASPARTATE AMINO TRANSFERASE 36 U/L (17-59); BILIRUBIN,DIRECT 0.4 mg/dL (0.0-0.4); BILIRUBIN,TOTAL 0.5 mg/dL (0.2-1.3); BLOOD UREA NITROGEN 8 mg/dL (7-20); CALCIUM 10.5 mg/dL (8.4-10.2); CARBON DIOXIDE 26 mmol/L (22-30); CHLORIDE 106 mmol/L (98-107); CREATININE RESULT 0.69 mg/dL (0.52-1.25); GLUCOSE 96 mg/dL (75-110); LIPASE 69.5 U/L (23-300); POTASSIUM 4.2 mmol/L (3.6-5.0); SODIUM 141.9 mmol/L (137-145); TOTAL PROTEIN 7.7 g/dL (6.3-8.2)
[2017-02-16 18:54] VITALS: BP 128/88
== END 2017-02-16 18:54 | disposition home or self-care (01) ==
LOC: ER 14:02
DX: R10.13 Epigastric pain (principal); R10.12 Left upper quadrant pain; R11.2 Nausea with vomiting, unspecified
CPT/HCPCS: 99283; 96360; 36415; 83690; 85025; 80053; 81001; J3490; J7030

== ENCOUNTER 2017-02-18 12:13 | Emergency (ER) | payer OTHER ==
[2017-02-18] MEDS ORDERED: HYDROCODONE/ACETAMINOPHEN 5-325 MG TABLET PO ONE (12:43)
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
[2017-02-18 14:04] LABS: ABSOLUTE BASOPHILS # (AUTO) 0.1 10^3/uL (0.0-0.2); ABSOLUTE EOSINOPHILS # (AUTO) 0.2 10^3/uL (0.0-0.6); ABSOLUTE LYMPHOCYTES (AUTO) 3.9 10^3/uL (0.5-4.7); ABSOLUTE NEUT (AUTO) 6.3 10^3/uL (1.7-8.2); BASOPHILS % (AUTO) 0.6 % (0-2); EOSINOPHILS % (AUTO) 1.5 % (0-6); HEMATOCRIT 45.4 % (37.9-51.0); HEMOGLOBIN 15.8 g/dL (13.5-17.0); LYMPHOCYTES % (AUTO) 34.5 % (13-45); MEAN CORPUSCULAR HEMOGLOBIN 29.3 pg (27.0-33.4); MEAN CORPUSCULAR HGB CONC 34.8 g/dL (32.0-36.0); MEAN CORPUSCULAR VOLUME 84 fl (80-97); MONOCYTES % (AUTO) 8.5 % (3-13); RED BLOOD COUNT 5.39 10^6/uL (4.35-5.55); RED CELL DISTRIBUTION WIDTH 14.4 % (11.5-14.0); SEGMENTED NEUTROPHILS % (AUTO) 54.9 % (42-78); WHITE BLOOD COUNT 11.4 10^3/uL (4.0-10.5)
[2017-02-18 14:24] LABS: ALANINE AMINOTRANSFERASE 56 U/L (21-72); ALBUMIN 4.3 g/dL (3.5-5.0); ALKALINE PHOSPHATASE 73 U/L (38-126); ANION GAP 13 (5-19); ASPARTATE AMINO TRANSFERASE 33 U/L (17-59); BILIRUBIN,DIRECT 0.4 mg/dL (0.0-0.4); BILIRUBIN,TOTAL 0.4 mg/dL (0.2-1.3); BLOOD UREA NITROGEN 7 mg/dL (7-20); CALCIUM 10.2 mg/dL (8.4-10.2); CARBON DIOXIDE 22 mmol/L (22-30); CHLORIDE 107 mmol/L (98-107); CREATININE RESULT 0.61 mg/dL (0.52-1.25); GLUCOSE 113 mg/dL (75-110); LIPASE 60.7 U/L (23-300); POTASSIUM 4.6 mmol/L (3.6-5.0); SODIUM 141.6 mmol/L (137-145); TOTAL PROTEIN 7.3 g/dL (6.3-8.2)
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
--- NOTE | 2017-02-18 16:44 | RADIOLOGY REPORT (SQ) ---
EXAM DESCRIPTION: U/S ABDOMEN LIMITED W/O DOP COMPLETED DATE/TIME: 02/18/2017 4:06 pm REASON FOR STUDY: ruq pain COMPARISON: CT abdomen and pelvis 06/12/2014 Abdominal ultrasound 02/06/2017, 02/10/2017 TECHNIQUE: Dynamic and static grayscale images acquired of the abdomen and recorded on PACS. Additio nal selected color Doppler and spectral images recorded. LIMITATIONS: Body habitus, midline bowel gas FINDINGS: PANCREAS: Not well seen LIVER: Very difficult to penetrate with the ultrasound energy from diffuse fatty infiltration of the liver. No gross liver masses. LIVER VASCULATURE: Normal directional flow of the main portal vein and hepatic veins. GALLBLADDER: No stones. Normal wall thickness. No pericholecystic fluid. ULTRASOUND-DETECTED QUARLES'S SIGN: Negative. INTRAHEPATIC DUCTS AND COMMON DUCT: CBD and intrahepatic ducts normal caliber. No filling defects. D istal most common duct not well seen due to duodenum gas. INFERIOR VENA CAVA: Not visualized AORTA: Not visualized RIGHT KIDNEY: Normal size. Normal echogenicity. No solid or suspicious masses. No hydronephrosis. No calcifications. PERITONEAL AND RIGHT PLEURAL SPACE: No ascites or effusions. OTHER: No other significant findings. IMPRESSION: Limited study. Fatty infiltration of the liver. No gallstones. Pancreas not well seen TECHNICAL DOCUMENTATION: JOB ID: [id number] [employer]- All Rights Reserved
[2017-02-18] MEDS ORDERED: LANSOPRAZOLE 30 MG TAB.RAP.DR PO ONE (17:08)
[2017-02-18] MEDS ORDERED: ONDANSETRON 4 MG TAB.RAPDIS PO ONE (17:08)
[2017-02-18 17:23] VITALS: BP 134/78
== END 2017-02-18 17:23 | disposition home or self-care (01) ==
LOC: ER 12:13
DX: R10.13 Epigastric pain (principal); R11.2 Nausea with vomiting, unspecified; Z87.891 Personal history of nicotine dependence
CPT/HCPCS: 99284; 36415; 83690; 85025; 80053; 76705; S0119

== ENCOUNTER 2017-02-26 13:50 | Emergency (ER) | payer OTHER ==
--- NOTE | 2017-02-26 14:43 | RADIOLOGY REPORT (SQ) ---
EXAM DESCRIPTION: CHEST PA/LAT COMPLETED DATE/TIME: 02/26/2017 2:30 pm REASON FOR STUDY: cough COMPARISON: 08/08/2016 EXAM PARAMETERS: NUMBER OF VIEWS: two views TECHNIQUE: Digital Frontal and Lateral radiographic views of the chest acquired. RADIATION DOSE: NA LIMITATIONS: none FINDINGS: LUNGS AND PLEURA: No opacities, masses or pneumothorax. No pleural effusion. MEDIASTINUM AND HILAR STRUCTURES: No masses or contour abnormalities. HEART AND VASCULAR STRUCTURES: Heart normal size. No evidence for failure. BONES: No acute findings. HARDWARE: None in the chest. OTHER: No other significant finding. IMPRESSION: NO SIGNIFICANT RADIOGRAPHIC FINDING IN THE CHEST. TECHNICAL DOCUMENTATION: JOB ID: [id number] [employer]- All Rights Reserved
[2017-02-26] MEDS ORDERED: ALBUTEROL SULFATE HFA (90 MCG/PUFF) 8 GM MDI (1 MDI/ER DISP) IH PRN (15:57)
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
[2017-02-26 16:08] VITALS: BP 131/72
== END 2017-02-26 16:07 | disposition home or self-care (01) ==
LOC: ER 13:50
DX: J06.9 Acute upper respiratory infection, unspecified (principal); R50.9 Fever, unspecified; R07.9 Chest pain, unspecified; Z87.891 Personal history of nicotine dependence
CPT/HCPCS: 99283; 71020; J3490

== ENCOUNTER 2017-03-16 01:29 | Emergency (ER) | payer OTHER ==
[2017-03-16 01:39] VITALS: BP 138/85
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
[2017-03-16] MEDS ORDERED: ACETAMINOPHEN 325 MG TABLET PO ONE (03:23)
[2017-03-16] MEDS ORDERED: IBUPROFEN 600 MG TABLET PO ONE (03:23)
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
--- NOTE | 2017-03-16 04:31 | RADIOLOGY REPORT (SQ) ---
EXAM DESCRIPTION: CT ABD/PELVIS WITH IV ONLY COMPLETED DATE/TIME: 03/16/2017 4:13 am REASON FOR STUDY: abdominal pain s/p injury L>R . Pain to left kidney area. COMPARISON: CT abdomen and pelvis 06/12/2014. TECHNIQUE: CT scan of the abdomen and pelvis performed using helical scanning technique with dynamic intravenous contrast injection. No oral contrast. Images reviewed with lung, soft tissue, and bone windows. Reconstructed coronal and sagittal MPR images reviewed. Delayed images for evaluation of the urinary system also acquired. All images stored on PACS. All CT scanners at this facility use dose modulation, iterative reconstruction, and/or weight based d osing when appropriate to reduce radiation dose to as low as reasonably achievable (ALARA). [facility]: Dose Right [facility]: CareDose [facility]: Dose Right [facility]: Teradose 4D [facility]: Ohmx CONTRAST TYPE AND DOSE: contrast/concentration: Isovue 370.00 mg/ml; Total Contrast Delivered: 100.0 ml; Total Saline Delivered: 72.0 ml RENAL FUNCTION: None required. The patient is less than 50 years old. RADIATION DOSE: Up-to-date CT equipment and radiation dose reduction techniques were employed. CTDIv ol: 21.1 mGy. DLP: 2388 mGy-cm.. LIMITATIONS: None. FINDINGS: LOWER CHEST: No consolidation or pleural effusion. LIVER: Enlarged measuring 19.5 cm. There is diffuse decreased attenuation, suggestive of fatty infil tration. No evidence for laceration or perihepatic fluid. No dilated ducts. SPLEEN: Surgically absent. Radiopaque coils in the left upper quadrant PANCREAS: No significant calcifications. No adjacent inflammation or peripancreatic fluid collections . Pancreatic duct not dilated. GALLBLADDER: Present. ADRENAL GLANDS: No significant masses or asymmetry. RIGHT KIDNEY AND URETER: No perinephric stranding. No subcapsular hematoma. No significant calcifi cations. No hydronephrosis or hydroureter. LEFT KIDNEY AND URETER: No perinephric stranding. No subcapsular hematoma. No significant calcific ations. No hydronephrosis or hydroureter. AORTA AND VESSELS: No abdominal aortic aneurysm. RETROPERITONEUM: No retroperitoneal hemorrhage or masses. BOWEL AND PERITONEAL CAVITY: No dilated bowel loops or inflammatory changes. No free fluid or free ai r. APPENDIX: Normal. PELVIS: The urinary bladder is partially distended. No pelvic mass. No free fluid. ABDOMINAL WALL: Small fat containing midline ventral hernia superior to the umbilicus. Small fat con taining umbilical hernia. BONES: No acute findings. IMPRESSION: No acute posttraumatic findings in the abdomen or pelvis. Hepatomegaly and fatty infiltration of the liver. Status post splenectomy. TECHNICAL DOCUMENTATION: JOB ID: [id number] OH-[id number] Quality ID # [id number]: Final reports with documentation of one or more dose reduction techniques (e.g., Au tomated exposure control, adjustment of the mA and/or kV according to patient size, use of iterative reconstruction technique) 2010 [employer]- All Rights Reserved
== END 2017-03-16 04:46 | disposition home or self-care (01) ==
LOC: ER 01:29
DX: S30.1XXA Contusion of abdominal wall, initial encounter (principal); M25.552 Pain in left hip; W01.198A Fall on same level from slipping, tripping and stumbling with subsequent striking against other object, initial encounter; J45.909 Unspecified asthma, uncomplicated; Z90.81 Acquired absence of spleen
CPT/HCPCS: 74020; 74177; 99284

== ENCOUNTER 2017-03-24 16:08 | Emergency (ER) | payer OTHER ==
[2017-03-24 16:42] VITALS: BP 141/74
[2017-03-24] MEDS ORDERED: IBUPROFEN 800 MG TABLET PO ONE (17:42)
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
== END 2017-03-24 18:04 | disposition home or self-care (01) ==
LOC: ER 16:08
DX: M54.5 Low back pain (principal); F17.210 Nicotine dependence, cigarettes, uncomplicated; W19.XXXA Unspecified fall, initial encounter
CPT/HCPCS: 99283

== ENCOUNTER 2017-04-12 19:58 | Emergency (ER) | payer OTHER ==
[2017-04-12] MEDS ORDERED: ALBUTEROL SULFATE HFA (90 MCG/PUFF) 8 GM MDI (1 MDI/ER DISP) IH ONE (22:30)
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
[2017-04-12 23:16] LABS: APPEARANCE,URINE CLEAR; BILIRUBIN,URINE NEGATIVE (NEGATIVE); GLUCOSE, URINE NEGATIVE (NEGATIVE); KETONES,URINE NEGATIVE (NEGATIVE); LEUKOCYTE ESTERASE,URINE NEGATIVE (NEGATIVE); NITRITE,URINE NEGATIVE (NEGATIVE); PROTEIN,URINE NEGATIVE (NEGATIVE); URINE SPECIFIC GRAVITY 1.003; UROBILINOGEN,URINE NEGATIVE mg/dL (<2.0)
[2017-04-12 23:40] VITALS: BP 137/76
== END 2017-04-12 23:43 | disposition home or self-care (01) ==
LOC: ER 19:58
DX: J06.9 Acute upper respiratory infection, unspecified (principal); R05 Cough; J34.89 Other specified disorders of nose and nasal sinuses; R35.0 Frequency of micturition; J45.909 Unspecified asthma, uncomplicated; F17.210 Nicotine dependence, cigarettes, uncomplicated; Z71.6 Tobacco abuse counseling
CPT/HCPCS: 99283; 82962; 81001; J3490

== ENCOUNTER 2017-05-05 21:17 | Emergency (ER) | payer OTHER ==
[2017-05-05 21:54] VITALS: BP 130/76
--- NOTE | 2017-05-05 22:21 | RADIOLOGY REPORT (SQ) ---
EXAM DESCRIPTION: WRIST LEFT 3 VIEWS COMPLETED DATE/TIME: 05/05/2017 10:11 pm REASON FOR STUDY: fall injury COMPARISON: 07/17/2014 NUMBER OF VIEWS: Four views. TECHNIQUE: AP, lateral, oblique, and scaphoid radiographic images acquired of the left wrist. LIMITATIONS: None. FINDINGS: MINERALIZATION: Normal. BONES: No acute fracture or dislocation. No worrisome bone lesions. Normal alignment. SOFT TISSUES: No soft tissue swelling. No foreign body. OTHER: No other significant finding. IMPRESSION: NEGATIVE STUDY OF THE LEFT WRIST. NO RADIOGRAPHIC EVIDENCE OF ACUTE INJURY. TECHNICAL DOCUMENTATION: JOB ID: [id number] [employer]- All Rights Reserved
[2017-05-05] MEDS ORDERED: HYDROCODONE/ACETAMINOPHEN 5-325 MG TABLET PO ONE (23:12)
[2017-05-05] MEDS ORDERED: HYDROCODONE/ACETAMINOPHEN 5-325 MG 6 TAB/DSPK PO PRN (23:12)
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
== END 2017-05-06 00:10 | disposition home or self-care (01) ==
LOC: ER 21:17
DX: S69.92XA Unspecified injury of left wrist, hand and finger(s), initial encounter (principal); W01.0XXA Fall on same level from slipping, tripping and stumbling without subsequent striking against object, initial encounter; J45.909 Unspecified asthma, uncomplicated
CPT/HCPCS: 99283

== ENCOUNTER 2017-06-07 21:09 | Emergency (ER) | payer OTHER ==
[2017-06-07 22:04] VITALS: BP 138/70
== END 2017-06-07 22:55 | disposition left against medical advice (07) ==
LOC: ER 21:09
DX: Z53.21 Procedure and treatment not carried out due to patient leaving prior to being seen by health care provider (principal)

== ENCOUNTER 2017-06-16 21:46 | Emergency (ER) | payer OTHER ==
[2017-06-17] MEDS ORDERED: LIDOCAINE 2% JELLY 5 ML TUBE TOP ONE (00:01)
[2017-06-17] MEDS ORDERED: HYDROCODONE/ACETAMINOPHEN 5-325 MG (6 TAB/ER DISP) PO PRN (00:01)
[2017-06-17] MEDS ORDERED: HYDROCODONE/ACETAMINOPHEN 5-325 MG TABLET PO ONE (00:02)
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
[2017-06-17 00:25] VITALS: BP 136/64
== END 2017-06-17 00:24 | disposition home or self-care (01) ==
LOC: ER 21:46
DX: S02.5XXB Fracture of tooth (traumatic), initial encounter for open fracture (principal); K08.89 Other specified disorders of teeth and supporting structures; Z87.891 Personal history of nicotine dependence; X58.XXXA Exposure to other specified factors, initial encounter
CPT/HCPCS: 99282

== ENCOUNTER 2017-06-19 17:06 | Emergency (ER) | payer OTHER ==
[2017-06-19 17:24] VITALS: BP 120/72
[2017-06-19] MEDS ORDERED: DEXAMETHASONE SOD PHOSPHATE INJ 4 MG/1 ML VIAL IM ONE (18:14)
[2017-06-19] MEDS ORDERED: AZITHROMYCIN 250 MG TABLET PO ONE (18:16)
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
== END 2017-06-19 19:07 | disposition home or self-care (01) ==
LOC: ER 17:06
DX: J02.9 Acute pharyngitis, unspecified (principal); F17.210 Nicotine dependence, cigarettes, uncomplicated
CPT/HCPCS: 99282; 96372; J1100

== ENCOUNTER 2017-07-30 19:32 | Emergency (ER) | payer OTHER ==
[2017-07-30] MEDS ORDERED: PROCHLORPERAZINE EDISYLATE INJ 10 MG/2 ML VIAL IM ONE (20:40)
[2017-07-30] MEDS ORDERED: DIPHENHYDRAMINE HCL 50 MG CAPSULE PO ONE (20:40)
[2017-07-30] MEDS ORDERED: KETOROLAC TROMETHAMINE INJ/PF 30 MG/1 ML SDV IM ONE (20:40)
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
[2017-07-30 21:36] LABS: ABSOLUTE BASOPHILS # (AUTO) 0.1 10^3/uL (0.0-0.2); ABSOLUTE EOSINOPHILS # (AUTO) 0.4 10^3/uL (0.0-0.6); ABSOLUTE LYMPHOCYTES (AUTO) 4.8 10^3/uL (0.5-4.7); ABSOLUTE MONOCYTES (AUTO) 0.9 10^3/uL (0.1-1.4); ABSOLUTE NEUT (AUTO) 10.4 10^3/uL (1.7-8.2); BASOPHILS % (AUTO) 0.7 % (0-2); EOSINOPHILS % (AUTO) 2.3 % (0-6); HEMATOCRIT 45.5 % (37.9-51.0); HEMOGLOBIN 15.6 g/dL (13.5-17.0); MEAN CORPUSCULAR HGB CONC 34.3 g/dL (32.0-36.0); MEAN CORPUSCULAR VOLUME 85 fl (80-97); MONOCYTES % (AUTO) 5.4 % (3-13); PLATELET COUNT 509 10^3/uL (150-450); RED BLOOD COUNT 5.39 10^6/uL (4.35-5.55); RED CELL DISTRIBUTION WIDTH 14.6 % (11.5-14.0); SEGMENTED NEUTROPHILS % (AUTO) 62.6 % (42-78); TOTAL CELLS COUNTED % (AUTO) 100 %; WHITE BLOOD COUNT 16.7 10^3/uL (4.0-10.5)
[2017-07-30 21:41] LABS: ALANINE AMINOTRANSFERASE 54 U/L (21-72); ALKALINE PHOSPHATASE 63 U/L (38-126); ANION GAP 5 (5-19); ASPARTATE AMINO TRANSFERASE 30 U/L (17-59); BILIRUBIN,DIRECT 0.3 mg/dL (0.0-0.4); BILIRUBIN,TOTAL 0.3 mg/dL (0.2-1.3); BLOOD UREA NITROGEN 10 mg/dL (7-20); CALCIUM 9.7 mg/dL (8.4-10.2); CARBON DIOXIDE 25 mmol/L (22-30); CHLORIDE 108 mmol/L (98-107); GLUCOSE 130 mg/dL (75-110); POTASSIUM 4.3 mmol/L (3.6-5.0); SODIUM 137.9 mmol/L (137-145)
[2017-07-30 22:28] VITALS: BP 142/78
== END 2017-07-30 22:28 | disposition home or self-care (01) ==
LOC: ER 19:32
DX: G44.89 Other headache syndrome (principal); H53.8 Other visual disturbances; M79.1 Myalgia; R10.84 Generalized abdominal pain; F17.200 Nicotine dependence, unspecified, uncomplicated
CPT/HCPCS: 99284; 96372; 36415; 85025; 80053; J1885; J0780

== ENCOUNTER 2017-10-13 12:06 | Emergency (ER) | payer OTHER ==
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
[2017-10-13 13:15] VITALS: BP 137/74
== END 2017-10-13 13:19 | disposition home or self-care (01) ==
LOC: ER 12:06
DX: S40.011A Contusion of right shoulder, initial encounter (principal); W01.198A Fall on same level from slipping, tripping and stumbling with subsequent striking against other object, initial encounter; Y93.H3 Activity, building and construction
CPT/HCPCS: 99282

== ENCOUNTER 2017-12-18 19:15 | Emergency (ER) | payer OTHER ==
[2017-12-18] MEDS ORDERED: KETOROLAC TROMETHAMINE INJ/PF 30 MG/1 ML SDV IV ONE (21:27)
[2017-12-18] MEDS ORDERED: METHYLPREDNISOLONE INJ 125 MG/2 ML SDV IV ONE (21:27)
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
[2017-12-18 22:13] LABS: HEMATOCRIT 44.7 % (37.9-51.0); HEMOGLOBIN 15.4 g/dL (13.5-17.0); MEAN CORPUSCULAR HEMOGLOBIN 28.8 pg (27.0-33.4); MEAN CORPUSCULAR HGB CONC 34.5 g/dL (32.0-36.0); MEAN CORPUSCULAR VOLUME 83 fl (80-97); PLATELET COUNT 384 10^3/uL (150-450); RED BLOOD COUNT 5.37 10^6/uL (4.35-5.55); RED CELL DISTRIBUTION WIDTH 14.8 % (11.5-14.0); WHITE BLOOD COUNT 22.7 10^3/uL (4.0-10.5)
[2017-12-18 22:34] LABS: ABSOLUTE MONOCYTES # (MANUAL) 0.9 10^3/uL (0.1-1.4); ABSOLUTE NEUTROPHILS# (MANUAL) 18.8 10^3/uL (1.7-8.2); BAND NEUTROPHILS % (MANUAL) 1 % (3-5); BASOPHILS % (MANUAL) 0 % (0-2); EOSINOPHILS % (MANUAL) 0 % (0-6); LYMPHOCYTES % (MANUAL) 13 % (13-45); MONOCYTES % (MANUAL) 4 % (3-13); SEGMENTED NEUTROPHILS % (MAN) 82 % (42-78); TOTAL CELLS COUNTED 100
[2017-12-18 22:37] LABS: PLATELET COMMENT ADEQUATE; RBC MORPHOLOGY COMMENT NORMO-CYTIC/CHROMIC; TOXIC VACUOLATION PRESENT
--- NOTE | 2017-12-18 23:18 | RADIOLOGY REPORT (SQ) ---
CLINICAL HISTORY : sore throat enlarged tonsils , EXAM : CT neck with contrast 12/18/2017 9:25 PM CDT COMPARISON : none TECHNIQUE : Following the administration of intravenous contrast, volumetric CT acquisition was performed from the mid calvarium to the arch of the aorta. Images in the axial, coronal, and sagittal planes were presented for interpretation. This exam was performed according to our departmental dose-optimization program, which includes automated exposure control, adjustment of the mA and/or kV according to patient size and/or use of iterative reconstruction technique. RADIATION DOSE/CONTRAST : [id number] FINDINGS : The visualized portions of the brain and skull base are grossly normal in appearance. The globes remain intact. The visualized portions of the paranasal sinuses and mastoid air cells are clear. The bilateral parotid and submandibular glands are grossly normal in appearance. There is symmetric enlargement of the bilateral palatine tonsils. The right palatine tonsil measuring 3.7 x 2.5 x 3.7 cm and the left palatine tonsil measures 3.8 x 2.6 x 5.1 cm. There is no clear evidence of tonsillar abscess formation. There is enlargement of the adenoidal tissue measuring 2.6 cm in thickness. There are numerous bilateral neck lymph nodes most pronounced in the parapharyngeal space best seen on axial image 60. There is a dominant right parapharyngeal lymph node on image 16 measuring 1.6 cm in short axis. There is a left parapharyngeal lymph node on image 61 measuring 1.6 cm. Additional smaller lymph nodes are also noted.. The airway remains patent and midline. The epiglottis, aryepiglottic folds, and vocal cords are grossly normal in appearance. . There are no abnormal masses or fluid collections. The musculature of the neck is symmetric and normal in appearance. The lung apices are clear. Superior mediastinal structures are grossly normal. Limited evaluation of the vasculature of the neck demonstrates no gross abnormalities. The osseous structures are age-appropriate. IMPRESSION: Symmetric enlargement of the palatine tonsil and adenoidal tissue bilateral cervical/parapharyngeal lymphadenopathy. There is no evidence of abscess formation. Recommend correlation with patient's history; this most likely represents infectious process though lymphoma/lymphoproliferative disorders as well as HIV infection should be considered.
[2017-12-18] MEDS ORDERED: CLINDAMYCIN 600 MG/D5W RTU 600 MG/50 ML RTUPB IV ONE (23:50)
[2017-12-19] MEDS ORDERED: ONDANSETRON 4 MG TAB.RAPDIS PO ONE (01:00)
[2017-12-19 01:04] VITALS: BP 116/70
== END 2017-12-19 02:20 | disposition home or self-care (01) ==
LOC: ER 19:15
DX: J03.90 Acute tonsillitis, unspecified (principal); R19.7 Diarrhea, unspecified; R50.9 Fever, unspecified
CPT/HCPCS: 99284; 36415; 87040; 87070; 87880; 85025; 87077; 86308; 70491; S0119; J2930; J1885

== ENCOUNTER 2017-12-20 14:53 | Emergency (ER) | payer OTHER ==
[2017-12-20 15:12] VITALS: BP 127/67
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
== END 2017-12-20 15:49 | disposition home or self-care (01) ==
LOC: ER 14:53
DX: J02.0 Streptococcal pharyngitis (principal); R04.2 Hemoptysis; Z90.81 Acquired absence of spleen
CPT/HCPCS: 99282

== ENCOUNTER 2018-03-04 15:54 | Emergency (ER) | payer OTHER ==
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
[2018-03-04 18:24] LABS: ABSOLUTE BASOPHILS # (AUTO) 0.1 10^3/uL (0.0-0.2); ABSOLUTE EOSINOPHILS # (AUTO) 0.5 10^3/uL (0.0-0.6); ABSOLUTE LYMPHOCYTES (AUTO) 4.7 10^3/uL (0.5-4.7); ABSOLUTE MONOCYTES (AUTO) 1.1 10^3/uL (0.1-1.4); ABSOLUTE NEUT (AUTO) 7.3 10^3/uL (1.7-8.2); BASOPHILS % (AUTO) 0.9 % (0-2); EOSINOPHILS % (AUTO) 3.7 % (0-6); HEMATOCRIT 42.2 % (37.9-51.0); HEMOGLOBIN 14.8 g/dL (13.5-17.0); LYMPHOCYTES % (AUTO) 34.3 % (13-45); MEAN CORPUSCULAR HEMOGLOBIN 29.1 pg (27.0-33.4); MEAN CORPUSCULAR VOLUME 83 fl (80-97); MONOCYTES % (AUTO) 7.8 % (3-13); PLATELET COUNT 436 10^3/uL (150-450); RED BLOOD COUNT 5.07 10^6/uL (4.35-5.55); RED CELL DISTRIBUTION WIDTH 15.1 % (11.5-14.0); SEGMENTED NEUTROPHILS % (AUTO) 53.3 % (42-78); TOTAL CELLS COUNTED % (AUTO) 100 %; WHITE BLOOD COUNT 13.7 10^3/uL (4.0-10.5)
[2018-03-04 18:37] LABS: APPEARANCE,URINE CLOUDY; BILIRUBIN,URINE NEGATIVE (NEGATIVE); COLOR,URINE YELLOW; GLUCOSE, URINE 50 mg/dL (NEGATIVE); KETONES,URINE NEGATIVE (NEGATIVE); LEUKOCYTE ESTERASE,URINE NEGATIVE (NEGATIVE); NITRITE,URINE NEGATIVE (NEGATIVE); PROTEIN,URINE NEGATIVE (NEGATIVE); URINE SPECIFIC GRAVITY 1.027
[2018-03-04 18:50] LABS: ALANINE AMINOTRANSFERASE 46 U/L (21-72); ALKALINE PHOSPHATASE 58 U/L (38-126); ANION GAP 10 (5-19); ASPARTATE AMINO TRANSFERASE 32 U/L (17-59); BILIRUBIN,DIRECT 0.4 mg/dL (0.0-0.4); BILIRUBIN,TOTAL 0.5 mg/dL (0.2-1.3); BLOOD UREA NITROGEN 10 mg/dL (7-20); CALCIUM 9.4 mg/dL (8.4-10.2); CARBON DIOXIDE 24 mmol/L (22-30); CHLORIDE 107 mmol/L (98-107); GLUCOSE 94 mg/dL (75-110); POTASSIUM 4.5 mmol/L (3.6-5.0); SODIUM 141.2 mmol/L (137-145); TOTAL PROTEIN 7.5 g/dL (6.3-8.2)
--- NOTE | 2018-03-04 19:02 | RADIOLOGY REPORT (SQ) ---
EXAM DESCRIPTION: CT HEAD WITHOUT COMPLETED DATE/TIME: 03/04/2018 6:22 pm REASON FOR STUDY: Sudden onset headache with left facial weakness COMPARISON: CT brain 12/04/2016, 07/10/2015, 06/12/2014, 12/05/2011 TECHNIQUE: Axial images acquired through the brain without intravenous contrast. Images reviewed wi th bone, brain and subdural windows. Additional sagittal and coronal reconstructions were generated. Images stored on PACS. All CT scanners at this facility use dose modulation, iterative reconstruction, and/or weight based d osing when appropriate to reduce radiation dose to as low as reasonably achievable (ALARA). [facility]: Dose Right [facility]: CareDose [facility]: Dose Right [facility]: Teradose 4D [facility]: [employer] RADIATION DOSE: CT Rad equipment meets quality standard of care and radiation dose reduction techniq ues were employed. CTDIvol: 53.2 mGy. DLP: 1017 mGy-cm. mGy. LIMITATIONS: None. FINDINGS: VENTRICLES: Normal size and contour. CEREBRUM: No masses. No hemorrhage. No midline shift. No evidence for acute infarction. Normal gra y/white matter differentiation. No areas of low density in the white matter. CEREBELLUM: No masses. No hemorrhage. No alteration of density. No evidence for acute infarction. EXTRAAXIAL SPACES: No fluid collections. No masses. ORBITS AND GLOBE: No intra- or extraconal masses. Normal contour of globe without masses. CALVARIUM: No fracture. PARANASAL SINUSES: No fluid or mucosal thickening. SOFT TISSUES: No mass or hematoma. OTHER: No other significant finding. IMPRESSION: NORMAL BRAIN CT WITHOUT CONTRAST. EVIDENCE OF ACUTE STROKE: NO. COMMENT: Quality ID # [id number]: Final reports with documentation of one or more dose reduction techniques (e.g., Automated exposure control, adjustment of the mA and/or kV according to patient size, use of iterative reconstruction technique) TECHNICAL DOCUMENTATION: JOB ID: [id number] AVOB- All Rights Reserved Reading location - IP/workstation name: [email or web address]
[2018-03-04] MEDS ORDERED: DIPHENHYDRAMINE HCL 50 MG/ML VIAL IM ONE (19:37)
[2018-03-04] MEDS ORDERED: KETOROLAC TROMETHAMINE 60 MG/2 ML SDV IM ONE (19:37)
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
[2018-03-04 20:29] LABS: URINE AMPHETAMINES SCREEN NEGATIVE; URINE BARBITURATES SCREEN NEGATIVE; URINE BENZODIAZEPINES SCREEN NEGATIVE; URINE COCAINE SCREEN NEGATIVE; URINE MARIJUANA (THC) SCREEN NEGATIVE; URINE METHADONE SCREEN NEGATIVE; URINE PHENCYCLIDINE SCREEN NEGATIVE
[2018-03-04 22:23] VITALS: BP 126/70
== END 2018-03-04 22:00 | disposition home or self-care (01) ==
LOC: ER 15:54
DX: G44.209 Tension-type headache, unspecified, not intractable (principal); R11.10 Vomiting, unspecified; H53.149 Visual discomfort, unspecified; F17.210 Nicotine dependence, cigarettes, uncomplicated; J45.909 Unspecified asthma, uncomplicated; Z86.69 Personal history of other diseases of the nervous system and sense organs; Z82.3 Family history of stroke
CPT/HCPCS: 99284; 96372; 36415; 85025; 80053; 81001; 80307; 70450; J1200; J1885

== ENCOUNTER 2018-09-08 19:57 | Emergency (ER) | payer OTHER ==
--- NOTE | 2018-09-08 20:27 | RADIOLOGY REPORT (SQ) ---
EXAM DESCRIPTION: XR HAND 3 OR MORE VIEWS COMPLETED DATE/TME: 09/08/2018 00:00 CLINICAL HISTORY: 22 years, Male, pain Findings: Bony alignment is anatomic. No fracture or dislocation. Soft tissues are unremarkable. IMPRESSION: No fracture.
--- NOTE | 2018-09-08 20:28 | RADIOLOGY REPORT (SQ) ---
EXAM DESCRIPTION: XR WRIST 3 OR MORE VIEWS BILATERAL COMPLETED DATE/TME: 09/08/2018 00:00 CLINICAL HISTORY: 22 years, Male, pain Findings: Bony alignment is anatomic. No fracture or dislocation. Soft tissues are unremarkable. IMPRESSION: No fracture.
[2018-09-08 20:33] VITALS: BP 149/86
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
== END 2018-09-08 23:15 | disposition home or self-care (01) ==
LOC: ER 19:57
DX: M77.9 Enthesopathy, unspecified (principal); M79.641 Pain in right hand; F17.210 Nicotine dependence, cigarettes, uncomplicated
CPT/HCPCS: 99283; 73130; 73110; L3908

== ENCOUNTER 2019-01-15 23:07 | Emergency (ER) | payer SELFPAY ==
[2019-01-15 23:15] VITALS: BP 141/61
[2019-01-16 00:43] LABS: ABSOLUTE BASOPHILS # (AUTO) 0.1 10^3/uL (0.0-0.2); ABSOLUTE EOSINOPHILS # (AUTO) 0.4 10^3/uL (0.0-0.6); ABSOLUTE MONOCYTES (AUTO) 1.2 10^3/uL (0.1-1.4); ABSOLUTE NEUT (AUTO) 7.8 10^3/uL (1.7-8.2); BASOPHILS % (AUTO) 0.9 % (0-2); EOSINOPHILS % (AUTO) 2.5 % (0-6); HEMATOCRIT 41.8 % (37.9-51.0); HEMOGLOBIN 14.4 g/dL (13.5-17.0); LYMPHOCYTES % (AUTO) 38.3 % (13-45); MEAN CORPUSCULAR HEMOGLOBIN 28.8 pg (27.0-33.4); MEAN CORPUSCULAR HGB CONC 34.3 g/dL (32.0-36.0); MEAN CORPUSCULAR VOLUME 84 fl (80-97); MONOCYTES % (AUTO) 7.8 % (3-13); PLATELET COUNT 450 10^3/uL (150-450); RED BLOOD COUNT 4.98 10^6/uL (4.35-5.55); RED CELL DISTRIBUTION WIDTH 14.1 % (11.5-14.0); TOTAL CELLS COUNTED % (AUTO) 100 %; WHITE BLOOD COUNT 15.5 10^3/uL (4.0-10.5)
[2019-01-16 00:55] LABS: SEGMENTED NEUTROPHILS % (AUTO) 55.9 % (42-78)
[2019-01-16 00:57] LABS: ALBUMIN 4.4 g/dL (3.5-5.0); ALKALINE PHOSPHATASE 64 U/L (38-126); ANION GAP 10 (5-19); ASPARTATE AMINO TRANSFERASE 31 U/L (17-59); BILIRUBIN,DIRECT 0.2 mg/dL (0.0-0.4); BILIRUBIN,TOTAL 0.2 mg/dL (0.2-1.3); BLOOD UREA NITROGEN 10 mg/dL (7-20); CALCIUM 9.8 mg/dL (8.4-10.2); CARBON DIOXIDE 24 mmol/L (22-30); CHLORIDE 105 mmol/L (98-107); GLUCOSE 108 mg/dL (75-110); POTASSIUM 4.4 mmol/L (3.6-5.0); TOTAL PROTEIN 7.2 g/dL (6.3-8.2)
[2019-01-16 01:04] LABS: APPEARANCE,URINE SLIGHTLY-CLOUDY; BILIRUBIN,URINE NEGATIVE (NEGATIVE); CALCIUM OXALATE CRYSTALS,URINE FEW /HPF; COLOR,URINE YELLOW; GLUCOSE, URINE NEGATIVE (NEGATIVE); KETONES,URINE TRACE mg/dL (NEGATIVE); LEUKOCYTE ESTERASE,URINE NEGATIVE (NEGATIVE); NITRITE,URINE NEGATIVE (NEGATIVE); PROTEIN,URINE 30 mg/dL (NEGATIVE); URINE SPECIFIC GRAVITY 1.027
[2019-01-16] MEDS ORDERED: ONDANSETRON 4 MG TAB.RAPDIS PO ONE (01:18)
[2019-01-16] MEDS ORDERED: OXYCODONE-ACETAMINOPHEN 5-325 MG TABLET PO ONE (01:18)
[2019-01-16] MEDS ORDERED: KETOROLAC TROMETHAMINE 60 MG/2 ML SDV IM ONE (01:18)
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
--- NOTE | 2019-01-16 02:07 | RADIOLOGY REPORT (SQ) ---
CT ABDOMEN PELVIS WITHOUT IV CONTRAST EXAM DATE: 01/16/2019 12:29 AM CDT HISTORY: Flank pain. COMPARISON: None. TECHNIQUE: CT scan of the abdomen and pelvis was performed without IV contrast. This exam was performed according to our departmental dose-optimization program, which includes automated exposure control, adjustment of the mA and/or kV according to patient size and/or use of iterative reconstruction technique. FINDINGS: The lung bases are clear. No pleural or pericardial effusions. The gallbladder is contracted, limiting evaluation. Prior splenectomy with multiple small splenule is noted. Pancreas, liver, adrenal glands, and kidneys are normal without hydronephrosis or urinary stones identified. Pelvic organs are also normal. No small bowel obstruction. The appendix is normal. No evidence of acute diverticulitis. No adenopathy, free fluid, or free air is identified. Bilateral pars defect at L5-S1 without listhesis. Normal caliber aorta. IMPRESSION: No acute abdominal or pelvic pathology.
[2019-01-16] MEDS ORDERED: OXYCODONE HCL IR 5 MG TABLET PO ONE (02:28)
== END 2019-01-16 02:45 | disposition home or self-care (01) ==
LOC: ER 23:07
DX: N20.0 Calculus of kidney (principal); R10.9 Unspecified abdominal pain; R11.0 Nausea; R42 Dizziness and giddiness; J45.909 Unspecified asthma, uncomplicated
CPT/HCPCS: 99284; 96374; 36415; 83690; 85025; 80053; 81001; 74176; J1885; S0119

== ENCOUNTER 2019-01-18 12:41 | Emergency (ER) | payer SELFPAY ==
[2019-01-18] MEDS ORDERED: KETOROLAC TROMETHAMINE INJ/PF 30 MG/1 ML SDV IV ONE (14:40)
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
[2019-01-18 15:08] LABS: APPEARANCE,URINE CLEAR; BILIRUBIN,URINE NEGATIVE (NEGATIVE); COLOR,URINE YELLOW; GLUCOSE, URINE NEGATIVE (NEGATIVE); KETONES,URINE NEGATIVE (NEGATIVE); LEUKOCYTE ESTERASE,URINE NEGATIVE (NEGATIVE); NITRITE,URINE NEGATIVE (NEGATIVE); PROTEIN,URINE NEGATIVE (NEGATIVE); URINE SPECIFIC GRAVITY 1.025
[2019-01-18 15:08] LABS: ABSOLUTE BASOPHILS # (AUTO) 0.1 10^3/uL (0.0-0.2); ABSOLUTE EOSINOPHILS # (AUTO) 0.2 10^3/uL (0.0-0.6); ABSOLUTE LYMPHOCYTES (AUTO) 4.2 10^3/uL (0.5-4.7); ABSOLUTE MONOCYTES (AUTO) 0.8 10^3/uL (0.1-1.4); ABSOLUTE NEUT (AUTO) 7.6 10^3/uL (1.7-8.2); BASOPHILS % (AUTO) 0.4 % (0-2); EOSINOPHILS % (AUTO) 1.8 % (0-6); HEMATOCRIT 42.7 % (37.9-51.0); HEMOGLOBIN 14.5 g/dL (13.5-17.0); LYMPHOCYTES % (AUTO) 32.7 % (13-45); MEAN CORPUSCULAR HEMOGLOBIN 28.4 pg (27.0-33.4); MEAN CORPUSCULAR HGB CONC 33.9 g/dL (32.0-36.0); MEAN CORPUSCULAR VOLUME 84 fl (80-97); MONOCYTES % (AUTO) 6.1 % (3-13); PLATELET COUNT 452 10^3/uL (150-450); RED BLOOD COUNT 5.09 10^6/uL (4.35-5.55); RED CELL DISTRIBUTION WIDTH 14.2 % (11.5-14.0); TOTAL CELLS COUNTED % (AUTO) 100 %; WHITE BLOOD COUNT 12.8 10^3/uL (4.0-10.5)
[2019-01-18 15:20] LABS: ALBUMIN 4.3 g/dL (3.5-5.0); ALKALINE PHOSPHATASE 62 U/L (38-126); ANION GAP 7 (5-19); ASPARTATE AMINO TRANSFERASE 44 U/L (17-59); BILIRUBIN,DIRECT 0.2 mg/dL (0.0-0.4); BILIRUBIN,TOTAL 0.5 mg/dL (0.2-1.3); BLOOD UREA NITROGEN 11 mg/dL (7-20); CALCIUM 9.5 mg/dL (8.4-10.2); CARBON DIOXIDE 29 mmol/L (22-30); CHLORIDE 105 mmol/L (98-107); GLUCOSE 121 mg/dL (75-110); TOTAL PROTEIN 7.4 g/dL (6.3-8.2)
[2019-01-18] MEDS ORDERED: ALBUTEROL SULFATE HFA (90 MCG/PUFF) 8 GM MDI (1 MDI/ER DISP) IH PRN (15:29)
[2019-01-18] MEDS ORDERED: ALBUTEROL SULFATE HFA (90 MCG/PUFF) 200 PUFF/8.5 GM MDI IH ONE (15:33)
[2019-01-18 15:44] VITALS: BP 128/68
== END 2019-01-18 15:44 | disposition home or self-care (01) ==
LOC: ER 12:41
DX: R10.9 Unspecified abdominal pain (principal); R31.9 Hematuria, unspecified; J45.20 Mild intermittent asthma, uncomplicated; F17.200 Nicotine dependence, unspecified, uncomplicated; Z90.81 Acquired absence of spleen
CPT/HCPCS: 99284; 96374; 36415; 85025; 80053; 81001; J1885; J3490

== ENCOUNTER 2019-02-16 13:38 | Emergency (ER) | payer SELFPAY ==
[2019-02-16] MEDS ORDERED: NORMAL SALINE 1000 ML 1,000 ML IV ONE (14:15)
[2019-02-16] MEDS ORDERED: ACETAMINOPHEN 325 MG TABLET PO ONE (14:15)
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
[2019-02-16 14:47] LABS: ABSOLUTE BASOPHILS # (AUTO) 0.2 10^3/uL (0.0-0.2); ABSOLUTE EOSINOPHILS # (AUTO) 0.2 10^3/uL (0.0-0.6); ABSOLUTE LYMPHOCYTES (AUTO) 4.8 10^3/uL (0.5-4.7); ABSOLUTE MONOCYTES (AUTO) 1.1 10^3/uL (0.1-1.4); ABSOLUTE NEUT (AUTO) 8.3 10^3/uL (1.7-8.2); BASOPHILS % (AUTO) 1.1 % (0-2); EOSINOPHILS % (AUTO) 1.4 % (0-6); HEMATOCRIT 44.6 % (37.9-51.0); HEMOGLOBIN 15.1 g/dL (13.5-17.0); LYMPHOCYTES % (AUTO) 33.2 % (13-45); MEAN CORPUSCULAR HEMOGLOBIN 28.2 pg (27.0-33.4); MEAN CORPUSCULAR HGB CONC 33.9 g/dL (32.0-36.0); MEAN CORPUSCULAR VOLUME 83 fl (80-97); MONOCYTES % (AUTO) 7.4 % (3-13); PLATELET COUNT 429 10^3/uL (150-450); RED BLOOD COUNT 5.36 10^6/uL (4.35-5.55); RED CELL DISTRIBUTION WIDTH 13.7 % (11.5-14.0); SEGMENTED NEUTROPHILS % (AUTO) 56.9 % (42-78); TOTAL CELLS COUNTED % (AUTO) 100 %; WHITE BLOOD COUNT 14.5 10^3/uL (4.0-10.5)
[2019-02-16 14:50] LABS: APPEARANCE,URINE CLEAR; BILIRUBIN,URINE NEGATIVE (NEGATIVE); COLOR,URINE YELLOW; GLUCOSE, URINE 50 mg/dL (NEGATIVE); KETONES,URINE NEGATIVE (NEGATIVE); LEUKOCYTE ESTERASE,URINE NEGATIVE (NEGATIVE); NITRITE,URINE NEGATIVE (NEGATIVE); PROTEIN,URINE NEGATIVE (NEGATIVE); URINE SPECIFIC GRAVITY 1.026
[2019-02-16 15:05] LABS: ALBUMIN 4.5 g/dL (3.5-5.0); ALKALINE PHOSPHATASE 65 U/L (38-126); ANION GAP 8 (5-19); ASPARTATE AMINO TRANSFERASE 39 U/L (17-59); BILIRUBIN,DIRECT 0.1 mg/dL (0.0-0.4); BILIRUBIN,TOTAL 0.4 mg/dL (0.2-1.3); BLOOD UREA NITROGEN 9 mg/dL (7-20); CALCIUM 10.1 mg/dL (8.4-10.2); CARBON DIOXIDE 29 mmol/L (22-30); CHLORIDE 104 mmol/L (98-107); GLUCOSE 84 mg/dL (75-110); POTASSIUM 4.4 mmol/L (3.6-5.0); TOTAL PROTEIN 7.8 g/dL (6.3-8.2)
[2019-02-16] MEDS ORDERED: DIPHENHYDRAMINE HCL 50 MG/ML VIAL IV ONE (16:30)
[2019-02-16] MEDS ORDERED: KETOROLAC TROMETHAMINE INJ/PF 30 MG/1 ML SDV IV ONE (16:30)
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
--- NOTE | 2019-02-16 18:30 | EKG REPORT ---
SEVERITY:- NORMAL ECG - SINUS RHYTHM : Confirmed by: Shayan Carr MD 16-Feb-2019 18:29:12
[2019-02-16 18:36] VITALS: BP 124/69
== END 2019-02-16 18:38 | disposition home or self-care (01) ==
LOC: ER 13:38
DX: R42 Dizziness and giddiness (principal); R00.2 Palpitations; J45.909 Unspecified asthma, uncomplicated; D72.829 Elevated white blood cell count, unspecified
CPT/HCPCS: 93005; 99284; 96361; 96374; 96375; 36415; 85025; 80053; 81001; 93010; J1200; J1885; J7030

== ENCOUNTER 2019-04-28 21:31 | Emergency (ER) | payer SELFPAY ==
[2019-04-28 21:41] VITALS: BP 149/85
[2019-04-28] MEDS ORDERED: HYDROCODONE/ACETAMINOPHEN 5-325 MG (6 TAB/ER DISP) PO PRN (22:01)
[2019-04-28] MEDS ORDERED: HYDROCODONE/ACETAMINOPHEN 5-325 MG TABLET PO ONE (22:01)
[2019-04-28] MEDS ORDERED: AMOXICILLIN TRIHYDRATE 500 MG CAPSULE PO ONE (22:02)
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
== END 2019-04-28 22:13 | disposition home or self-care (01) ==
LOC: ER 21:31
DX: K04.7 Periapical abscess without sinus (principal); K08.89 Other specified disorders of teeth and supporting structures; F17.200 Nicotine dependence, unspecified, uncomplicated; J45.909 Unspecified asthma, uncomplicated
CPT/HCPCS: 99282

== ENCOUNTER 2019-07-10 21:50 | Emergency (ER) | payer SELFPAY ==
[2019-07-10 21:56] VITALS: BP 135/79
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
[2019-07-10] MEDS ORDERED: ALBUTEROL SULFATE HFA (90 MCG/PUFF) 200 PUFF/8.5 GM MDI IH ONE (22:08)
[2019-07-10] MEDS ORDERED: HYDROCODONE/ACETAMINOPHEN 5-325 MG (6 TAB/ER DISP) PO PRN (22:09)
== END 2019-07-10 22:22 | disposition home or self-care (01) ==
LOC: ER 21:50
DX: K08.9 Disorder of teeth and supporting structures, unspecified (principal); F17.200 Nicotine dependence, unspecified, uncomplicated; Z76.0 Encounter for issue of repeat prescription
CPT/HCPCS: 99282; J3490

== ENCOUNTER 2019-07-26 12:30 | Emergency (ER) | payer SELFPAY ==
[2019-07-26 12:35] VITALS: BP 138/70
== END 2019-07-26 13:16 | disposition left against medical advice (07) ==
LOC: ER 12:30
DX: Z53.21 Procedure and treatment not carried out due to patient leaving prior to being seen by health care provider (principal); R51 Headache

== ENCOUNTER 2019-07-26 15:51 | Emergency (ER) | payer SELFPAY ==
[2019-07-26 16:54] VITALS: BP 151/85
[2019-07-26] MEDS ORDERED: HYDROCODONE/ACETAMINOPHEN 5-325 MG TABLET PO ONE (18:19)
[2019-07-26] MEDS ORDERED: PENICILLIN V POTASSIUM 500 MG TABLET PO ONE (18:19)
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
== END 2019-07-26 18:34 | disposition home or self-care (01) ==
LOC: ER 15:51
DX: K02.9 Dental caries, unspecified (principal); K12.2 Cellulitis and abscess of mouth; R22.0 Localized swelling, mass and lump, head; K08.89 Other specified disorders of teeth and supporting structures; F17.210 Nicotine dependence, cigarettes, uncomplicated; J45.909 Unspecified asthma, uncomplicated
CPT/HCPCS: 99282; 99406

== ENCOUNTER 2019-09-06 21:26 | Emergency (ER) | payer BC, OTHER ==
--- NOTE | 2019-09-06 21:50 | EKG REPORT ---
SEVERITY:- NORMAL ECG - SINUS RHYTHM : Confirmed by: Ayaka Pierre MD 06-Sep-2019 21:48:43
[2019-09-06 21:53] LABS: ABSOLUTE BASOPHILS # (AUTO) 0.2 10^3/uL (0.0-0.2); ABSOLUTE EOSINOPHILS # (AUTO) 0.4 10^3/uL (0.0-0.6); ABSOLUTE LYMPHOCYTES (AUTO) 6.1 10^3/uL (0.5-4.7); ABSOLUTE MONOCYTES (AUTO) 1.1 10^3/uL (0.1-1.4); ABSOLUTE NEUT (AUTO) 10.5 10^3/uL (1.7-8.2); BASOPHILS % (AUTO) 1.1 % (0-2); EOSINOPHILS % (AUTO) 2.2 % (0-6); HEMATOCRIT 42.1 % (37.9-51.0); HEMOGLOBIN 14.8 g/dL (13.5-17.0); LYMPHOCYTES % (AUTO) 33.4 % (13-45); MEAN CORPUSCULAR HEMOGLOBIN 29.2 pg (27.0-33.4); MEAN CORPUSCULAR HGB CONC 35.2 g/dL (32.0-36.0); MEAN CORPUSCULAR VOLUME 83 fl (80-97); MONOCYTES % (AUTO) 5.9 % (3-13); PLATELET COUNT 467 10^3/uL (150-450); RED BLOOD COUNT 5.07 10^6/uL (4.35-5.55); RED CELL DISTRIBUTION WIDTH 14.5 % (11.5-14.0); SEGMENTED NEUTROPHILS % (AUTO) 57.4 % (42-78); TOTAL CELLS COUNTED % (AUTO) 100 %; WHITE BLOOD COUNT 18.2 10^3/uL (4.0-10.5)
[2019-09-06 22:17] LABS: ALBUMIN 4.3 g/dL (3.5-5.0); ALKALINE PHOSPHATASE 77 U/L (38-126); ANION GAP 10 (5-19); ASPARTATE AMINO TRANSFERASE 36 U/L (17-59); BILIRUBIN,DIRECT 0.3 mg/dL (0.0-0.4); BILIRUBIN,TOTAL 0.3 mg/dL (0.2-1.3); BLOOD UREA NITROGEN 12 mg/dL (7-20); CALCIUM 9.7 mg/dL (8.4-10.2); CARBON DIOXIDE 21 mmol/L (22-30); CHLORIDE 106 mmol/L (98-107); CREATINE KINASE 293 U/L (55-170); GLUCOSE 182 mg/dL (75-110); POTASSIUM 4.5 mmol/L (3.6-5.0); TOTAL PROTEIN 7.6 g/dL (6.3-8.2)
[2019-09-06 22:29] LABS: CREATINE KINASE MB 2.55 ng/mL (<4.55)
[2019-09-06 22:30] LABS: TROPONIN I < 0.012 ng/mL
[2019-09-06] MEDS ORDERED: NORMAL SALINE 1000 ML 1,000 ML IV ONE (22:42)
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
--- NOTE | 2019-09-06 23:25 | RADIOLOGY REPORT (SQ) ---
EXAM DESCRIPTION: [facility]: CT HEAD WITHOUT IV CONTRAST CLINICAL HISTORY: 23 years Male; fall head injury loc nausea vomiting; TECHNIQUE: Noncontrast CT head. All CT scans at this facility use dose modulation, iterative reconstruction, and/or weight based dosing when appropriate to reduce radiation dose to as low as reasonably achievable. COMPARISON: CT 03/04/2018 FINDINGS: Taylor matter, white matter, ventricles, and cisterns are within normal limits. No acute hemorrhage or mass effect. Mucosal thickening nearly fills left maxillary sinus, increased since the prior exam. No fluid levels. Patchy mucosal thickening in the ethmoid air cells and right maxillary sinus. No mastoid effusion. No acute calvarial fractures. IMPRESSION: 1. No acute intracranial findings. 2. Chronic sinusitis
--- NOTE | 2019-09-06 23:26 | RADIOLOGY REPORT (SQ) ---
EXAM DESCRIPTION: [facility]: CT CERVICAL SPINE WITHOUT IV CONTRAST CLINICAL HISTORY: 23 years Male; Fall pain cervical spine; TECHNIQUE: Noncontrast cervical spine CT with sagittal and coronal reconstructions. All CT scans at this facility use dose modulation, iterative reconstruction, and/or weight based dosing when appropriate to reduce radiation dose to as low as reasonably achievable. COMPARISON: CT 07/10/2015 FINDINGS: Alignment is anatomic. There is no acute fracture of the cervical spine. No prevertebral edema. IMPRESSION: 1. No acute cervical spine fracture or subluxation.
--- NOTE | 2019-09-06 23:35 | RADIOLOGY REPORT (SQ) ---
EXAM DESCRIPTION: [facility]: XR CHEST 2 VIEWS Views: 2 CLINICAL HISTORY: 23 years Male; cough short of breath; COMPARISON: 03/16/2017 FINDINGS: Lungs: Lungs are clear, with no focal infiltrate, pneumothorax, or pleural effusion. Mediastinum: Mediastinum is within normal limits for this positioning. Bones: Bony structures are unremarkable. Left upper quadrant (likely splenic) embolization coils are again noted. IMPRESSION: 1. No acute cardiothoracic abnormality.
[2019-09-06 23:40] LABS: APPEARANCE,URINE CLEAR; BILIRUBIN,URINE NEGATIVE (NEGATIVE); COLOR,URINE YELLOW; GLUCOSE, URINE >=500 mg/dL (NEGATIVE); KETONES,URINE TRACE mg/dL (NEGATIVE); LEUKOCYTE ESTERASE,URINE NEGATIVE (NEGATIVE); NITRITE,URINE NEGATIVE (NEGATIVE); PROTEIN,URINE 30 mg/dL (NEGATIVE); URINE SPECIFIC GRAVITY 1.024; UROBILINOGEN,URINE NEGATIVE mg/dL (<2.0)
[2019-09-06 23:42] LABS: A TYPE INFLUENZA AG NEGATIVE (NEGATIVE); B INFLUENZA AG NEGATIVE (NEGATIVE)
[2019-09-07] MEDS ORDERED: METHOCARBAMOL 500 MG TABLET PO ONE (00:35)
[2019-09-07 01:12] VITALS: BP 121/53
== END 2019-09-07 01:16 | disposition home or self-care (01) ==
LOC: ER 21:26
DX: R55 Syncope and collapse (principal); S09.90XA Unspecified injury of head, initial encounter; S16.1XXA Strain of muscle, fascia and tendon at neck level, initial encounter; W19.XXXA Unspecified fall, initial encounter; R05 Cough; R11.2 Nausea with vomiting, unspecified; R06.02 Shortness of breath; F17.210 Nicotine dependence, cigarettes, uncomplicated
CPT/HCPCS: 93005; 99406; 99284; 96360; 36415; 87070; 82553; 87880; 82550; 85025; 87077; 80053; 81001; 84484; 87804; 71046; 70450; 72125; 93010; J7030